=== PATIENT | female | born 1950 | race Caucasian/White ===

== ENCOUNTER → 2016-06-15 | Outpatient (CLI) | payer MEDICARE ==
--- NOTE | 2016-06-15 16:04 | REP ---
Chest x-ray: Two views: History: Cough. Comparison chest x-ray: 06/20/2011. Findings: There is a mild curvature in the thoracic spine unchanged from the prior study. There are multiple clips in the right upper quadrant post cholecystectomy. The lungs are well inflated and remain clear. Heart is not felt to be enlarged. Pulmonary vasculature is not increased. No other significant bony abnormality is seen. Pulmonary vasculature is not increased. Impression: No active disease.
== END ==
LOC: M CLY 15:16
PROVIDERS: ATTEND Family Medicine
DX: R05 Cough (principal)

== ENCOUNTER → 2016-07-04 | Outpatient (REF) | payer BC, MEDICARE ==
[2016-07-04 17:47] LABS: ALBUMIN 3.2 GM/DL (3.2-5.2); ALBUMIN/GLOBULIN RATIO 0.86 (1.00-1.93); ALKALINE PHOSPHATASE 159 U/L (45-117); ALT/SGPT 103 U/L (12-78); ANION GAP 9 MEQ/L (8-16); AST/SGOT 65 U/L (15-37); BILIRUBIN,TOTAL 0.5 MG/DL (0.2-1.0); BLOOD UREA NITROGEN 26 MG/DL (7-18); CALCIUM LEVEL 9.4 MG/DL (8.8-10.2); CARBON DIOXIDE LEVEL 28 MEQ/L (21-32); CHLORIDE LEVEL 101 MEQ/L (98-107); CREATININE FOR GFR 0.97 MG/DL (0.55-1.02); GLOMERULAR FILTRATION RATE > 60.0 (>45); GLUCOSE, FASTING 306 MG/DL (80-110); POTASSIUM SERUM 4.6 MEQ/L (3.5-5.1); SODIUM LEVEL 138 MEQ/L (136-145); TOTAL PROTEIN 6.9 GM/DL (6.4-8.2)
== END ==
LOC: M SFHCCLAY 10:15
PROVIDERS: ATTEND Family Medicine
DX: E11.9 Type 2 diabetes mellitus without complications (principal)

== ENCOUNTER → 2017-01-16 | Outpatient (REF) | payer MEDICARE ==
[2017-01-16 19:14] LABS: ALBUMIN 3.1 GM/DL (3.2-5.2); ALBUMIN/GLOBULIN RATIO 0.79 (1.00-1.93); BILIRUBIN,TOTAL 0.5 MG/DL (0.2-1.0); CALCIUM LEVEL 9.4 MG/DL (8.8-10.2); CREATININE FOR GFR 1.06 MG/DL (0.55-1.02); GLOMERULAR FILTRATION RATE 55.6 (>45); MAGNESIUM LEVEL 2.2 MG/DL (1.8-2.4); POTASSIUM SERUM 4.5 MEQ/L (3.5-5.1)
== END ==
LOC: M SFHCCLAY 09:33
PROVIDERS: ATTEND Family Medicine
DX: B18.2 Chronic viral hepatitis C (principal); M25.512 Pain in left shoulder; E11.9 Type 2 diabetes mellitus without complications; I10 Essential (primary) hypertension

== ENCOUNTER → 2017-06-19 | Outpatient (REF) | payer MEDICARE ==
[2017-06-19 11:33] LABS: ALBUMIN 2.9 GM/DL (3.2-5.2); ALBUMIN/GLOBULIN RATIO 0.78 (1.00-1.93); ALKALINE PHOSPHATASE 188 U/L (45-117); ALT/SGPT 74 U/L (12-78); ANION GAP 7 MEQ/L (8-16); AST/SGOT 44 U/L (7-37); BILIRUBIN,TOTAL 0.3 MG/DL (0.2-1.0); BLOOD UREA NITROGEN 36 MG/DL (7-18); CALCIUM LEVEL 8.7 MG/DL (8.8-10.2); CARBON DIOXIDE LEVEL 27 MEQ/L (21-32); CHLORIDE LEVEL 107 MEQ/L (98-107); CREATININE FOR GFR 1.13 MG/DL (0.55-1.30); GLOMERULAR FILTRATION RATE 51.6 (>45); GLUCOSE, FASTING 325 MG/DL (70-100); POTASSIUM SERUM 4.8 MEQ/L (3.5-5.1); SODIUM LEVEL 141 MEQ/L (136-145); TOTAL PROTEIN 6.6 GM/DL (6.4-8.2)
[2017-06-19 11:36] LABS: ESTIMATED AVERAGE GLUCOSE 183 MG/DL (60-110)
== END ==
LOC: M SFHCCLAY 09:04
DX: E11.9 Type 2 diabetes mellitus without complications (principal)
CPT/HCPCS: 80053

== ENCOUNTER → 2017-07-31 | Outpatient (REF) | payer MEDICARE | LOC: M SFHCCLAY 11:23 | DX: N39.0 Urinary tract infection, site not specified (principal) | CPT/HCPCS: 87186 ==

== ENCOUNTER → 2017-09-16 | Outpatient (REF) | payer MEDICARE ==
[2017-09-16 12:32] LABS: ALBUMIN 2.5 GM/DL (3.2-5.2); ALBUMIN/GLOBULIN RATIO 0.66 (1.00-1.93); ALKALINE PHOSPHATASE 148 U/L (45-117); ALT/SGPT 60 U/L (12-78); ANION GAP 8 MEQ/L (8-16); AST/SGOT 39 U/L (7-37); BILIRUBIN,TOTAL 0.4 MG/DL (0.2-1.0); BLOOD UREA NITROGEN 29 MG/DL (7-18); CALCIUM LEVEL 8.4 MG/DL (8.8-10.2); CARBON DIOXIDE LEVEL 25 MEQ/L (21-32); CHLORIDE LEVEL 106 MEQ/L (98-107); CREATININE FOR GFR 1.47 MG/DL (0.55-1.30); GLUCOSE, FASTING 349 MG/DL (70-100); POTASSIUM SERUM 4.5 MEQ/L (3.5-5.1); SODIUM LEVEL 139 MEQ/L (136-145); TOTAL PROTEIN 6.3 GM/DL (6.4-8.2)
[2017-09-16 13:43] LABS: ESTIMATED AVERAGE GLUCOSE 189 MG/DL (60-110); HEMOGLOBIN A1c 8.2 %
== END ==
LOC: M SFHCCLAY 08:43
DX: E11.9 Type 2 diabetes mellitus without complications (principal)
CPT/HCPCS: 80053

== ENCOUNTER → 2018-03-05 | Outpatient (REF) | payer MEDICARE ==
[2018-03-06 11:57] LABS: ALBUMIN 2.9 GM/DL (3.2-5.2); ALBUMIN/GLOBULIN RATIO 0.74 (1.00-1.93); ALKALINE PHOSPHATASE 128 U/L (45-117); ALT/SGPT 61 U/L (12-78); ANION GAP 11 MEQ/L (8-16); AST/SGOT 42 U/L (7-37); BILIRUBIN,TOTAL 0.4 MG/DL (0.2-1.0); BLOOD UREA NITROGEN 21 MG/DL (7-18); CARBON DIOXIDE LEVEL 25 MEQ/L (21-32); CHLORIDE LEVEL 106 MEQ/L (98-107); CREATININE FOR GFR 1.24 MG/DL (0.55-1.30); GLOMERULAR FILTRATION RATE 46.2 (>45); GLUCOSE, FASTING 152 MG/DL (70-100); POTASSIUM SERUM 4.4 MEQ/L (3.5-5.1); SODIUM LEVEL 142 MEQ/L (136-145); TOTAL PROTEIN 6.8 GM/DL (6.4-8.2)
[2018-03-06 12:45] LABS: ESTIMATED AVERAGE GLUCOSE 146 MG/DL (60-110); HEMOGLOBIN A1c 6.7 %
== END ==
LOC: M SFHCCLAY 14:14
DX: E11.9 Type 2 diabetes mellitus without complications (principal)
CPT/HCPCS: 80053

== ENCOUNTER → 2018-04-11 | Outpatient (REF) | payer MEDICARE | LOC: M SFHCCLAY 11:11 | DX: N39.0 Urinary tract infection, site not specified (principal) | CPT/HCPCS: 87186 ==

== ENCOUNTER → 2018-06-09 | Outpatient (REF) | payer MEDICARE ==
[2018-06-10 12:00] LABS: HEMOGLOBIN A1c 7.5 %
[2018-06-10 12:07] LABS: ALBUMIN 2.9 GM/DL (3.2-5.2); BILIRUBIN,TOTAL 0.4 MG/DL (0.2-1.0); CALCIUM LEVEL 9.2 MG/DL (8.8-10.2); CREATININE FOR GFR 1.21 MG/DL (0.55-1.30); GLOMERULAR FILTRATION RATE 47.5 (>45); POTASSIUM SERUM 4.3 MEQ/L (3.5-5.1); TOTAL PROTEIN 6.7 GM/DL (6.4-8.2)
== END ==
LOC: M SFHCCLAY 14:20
PROVIDERS: ATTEND Family Medicine
DX: E11.9 Type 2 diabetes mellitus without complications (principal)

== ENCOUNTER → 2018-06-25 | Outpatient (CLI) | payer MEDICARE ==
--- NOTE | 2018-06-25 12:25 | REP ---
UNILATERAL LEFT RIBS, PA CHEST, FIVE VIEWS: HISTORY: Chest pain. COMPARISON: 06/15/2016. The lungs are clear. The heart is normal in size. The pulmonary vasculature is normal in appearance. The bony structure is intact. IMPRESSION: No acute disease.
== END ==
LOC: M CLY 11:07
PROVIDERS: ATTEND Family Medicine
DX: R07.89 Other chest pain (principal)

== ENCOUNTER 2018-07-27 00:47 | Emergency (ER) | payer MEDICARE ==
[~2018-07-27] VITALS: Ht 167.6 cm; Wt 72.7 kg
[2018-07-27] MEDS ORDERED: LOSA100T50 (00:58)
[2018-07-27] MEDS ORDERED: ASPI81TA85 PO (00:58)
[2018-07-27] MEDS ORDERED: ATEN100T (00:58)
[2018-07-27] MEDS ORDERED: AMLO10TA5 (00:58)
[2018-07-27] MEDS ORDERED: METF10004 (00:58)
[2018-07-27] MEDS ORDERED: RANI300T (00:58)
[2018-07-27] MEDS ORDERED: OXYC-517 (00:58)
[2018-07-27] MEDS ORDERED: GLIP10TA6 (00:58)
[2018-07-27] MEDS ORDERED: HYDR25TAB (00:58)
[2018-07-27 03:08] LABS: BASO % 0.6 % (0.0-1.0); EOS # 0.2 10^3/uL (0.0-0.50); EOS % 2.1 % (0.0-3.0); HEMATOCRIT 39.8 % (36.0-47.0); HEMOGLOBIN 13.6 g/dl (12.0-15.5); LYMPH # 2.5 10^3/uL (1.5-4.5); LYMPH % 34.6 % (24.0-44.0); MEAN CORPUSCULAR HEMOGLOBIN 31.9 pg (27.0-33.0); MEAN CORPUSCULAR HGB CONC 34.2 g/dl (32.0-36.5); MEAN CORPUSCULAR VOLUME 93.2 fl (80.0-96.0); MONO # 0.5 10^3/uL (0.0-0.8); MONO % 6.3 % (0.0-5.0); NEUTROPHILS % 55.7 % (36.0-66.0); PLATELET COUNT, AUTOMATED 209 10^3/uL (150-450); RED BLOOD COUNT 4.27 10^6/uL (4.00-5.40); WHITE BLOOD COUNT 7.1 10^3/uL (4.0-10.0)
[2018-07-27 03:12] LABS: INR 0.86; PROTHROMBIN TIME 11.8 SECONDS (12.1-14.4)
[2018-07-27 03:13] LABS: PARTIAL THROMBOPLASTIN TIME 24.9 SECONDS (25.4-37.6)
[2018-07-27 03:26] LABS: CALCIUM LEVEL 8.3 MG/DL (8.8-10.2); CREATININE FOR GFR 1.39 MG/DL (0.55-1.30); GLOMERULAR FILTRATION RATE 40.5 (>45); MB/CK RELATIVE INDEX 2.48 (< OR =4); POTASSIUM SERUM 4.1 MEQ/L (3.5-5.1); TROPONIN I 1.68 NG/ML (< 0.10)
[2018-07-27] MEDS ORDERED: HEPARIN DRIP 25,000 UNITS in APPROPRIATE DILUENT 1 EA IV SCH (03:31)
[2018-07-27] MEDS ORDERED: CLOPIDOGREL 300 MG TAB (PLAVIX) PO STA (03:31)
[2018-07-27] MEDS ORDERED: ASPIRIN 325 MG TAB PO ONE (03:45)
[2018-07-27] MEDS ORDERED: HEPARIN SOD (PORCINE) 5000 UNITS/ML VIAL IV ONE (03:45)
[2018-07-27 04:07] VITALS: BP 199/93
[2018-07-27] MEDS ORDERED: NITROGLYCERIN 2% OINT 1 GM *U/D* PKT TOP ONE (04:15)
[2018-07-27 05:00] VITALS: BP 174/79
--- NOTE | 2018-07-27 07:37 | ECGEPIP ---
Stationary ECG Study [facility] - ED Test Date: 2018-07-27 Pat Name: ALEXANDER ALLEN Department: Room: - Gender: F Mix Chemist: gt : 1950 Requested By: JOHANNA TAVERA Order Number: [id number] Reading MD: Chandler Sandoval Measurements Intervals Steen Rate: 73 P: 23 ME: 150 QRS: -15 QRSD: 96 T: 90 QT: 398 QTc: 441 Interpretive Statements SINUS RHYTHM LARRY IN AVR WITH WIDESPREAD ST DEPRESSION, CONSIDER LMCA OCCLUSION NO PRIORS FOR COMPARISON Electronically Signed On 07-27-2018 7:37:08 EDT by Chandler Sandoval
--- NOTE | 2018-07-27 11:20 | REP ---
PORTABLE CHEST: AP portable view of the chest is performed and compared to a prior study of 06/25/2018. There is no acute infiltrate or pulmonary edema. Heart is upper limits of normal in size. Mediastinal silhouette is unchanged. IMPRESSION: No acute infiltrate. Electronically Signed by James Barbosa MD 07/27/2018 05:45 P
== END 2018-07-27 05:06 | disposition short-term general hospital (02) ==
LOC: M ED 00:47
DX: I21.4 Non-ST elevation (NSTEMI) myocardial infarction (principal); E11.9 Type 2 diabetes mellitus without complications; I10 Essential (primary) hypertension; K21.9 Gastro-esophageal reflux disease without esophagitis; Z86.19 Personal history of other infectious and parasitic diseases; Z72.0 Tobacco use; Z79.82 Long term (current) use of aspirin; Z79.84 Long term (current) use of oral hypoglycemic drugs; Z79.899 Other long term (current) drug therapy; Z88.5 Allergy status to narcotic agent; Z88.8 Allergy status to other drugs, medicaments and biological substances; Z88.1 Allergy status to other antibiotic agents; Z88.2 Allergy status to sulfonamides

== ENCOUNTER → 2018-08-18 | Outpatient (CLI) | payer MEDICARE ==
[~2018-08-18] MED LIST: AMLO10TA5; ASPI81TA85 PO; ATEN100T; GLIP10TA6; HYDR25TAB; LOSA100T50; METF10004; OXYC-517; RANI300T
[2018-08-18 18:59] LABS: HEMATOCRIT 32.3 % (36.0-47.0); HEMOGLOBIN 10.6 g/dl (12.0-15.5); MEAN CORPUSCULAR HGB CONC 32.8 g/dl (32.0-36.5); MEAN CORPUSCULAR VOLUME 91.5 fl (80.0-96.0); PLATELET COUNT, AUTOMATED 282 10^3/uL (150-450); RED BLOOD COUNT 3.53 10^6/uL (4.00-5.40); WHITE BLOOD COUNT 9.9 10^3/uL (4.0-10.0)
[2018-08-18 19:04] LABS: CALCIUM LEVEL 8.5 MG/DL (8.8-10.2); CREATININE FOR GFR 1.2 MG/DL (0.55-1.30); GLOMERULAR FILTRATION RATE 47.8 (>45)
== END ==
LOC: M LAB 17:00
PROVIDERS: ATTEND Nurse Practitioner Family
DX: E78.5 Hyperlipidemia, unspecified (principal); I10 Essential (primary) hypertension; I25.810 Atherosclerosis of coronary artery bypass graft(s) without angina pectoris; R06.02 Shortness of breath

== ENCOUNTER → 2018-08-19 | Outpatient (CLI) | payer MEDICARE ==
--- NOTE | 2018-08-19 12:00 | REP ---
CT of the chest without IV contrast for chest pain and shortness of breath: There are no comparison chest CTs. There is a comparison portable chest dated 07/27/2018. There are small bilateral pleural effusions. There is atelectasis in the lower lobes adjacent to the The lung peterson are otherwise clear. Cardiac size is mildly enlarged. There is no mediastinal or axillary lymph node enlargement. In the absence of IV contrast the study is insensitive for hilar lymph node enlargement. The thoracic aorta is unremarkable. There is calcified atheroma in the coronary arteries. The cardiac size is enlarged. There is a small pericardial effusion versus pericardial thickening measuring up to 6.3 mm anteriorly. The visualized unenhanced upper abdominal contents are unremarkable. There are thyroid nodules bilaterally. Thyroid ultrasound follow-up might be considered. Impression: Small bilateral pleural effusions with accompanying bibasilar atelectasis. Cardiomegaly. Small pericardial effusion versus pericardial thickening measuring up to 6 mm. Coronary artery calcified vascular atheroma. Electronically Signed by James Reardon MD 08/19/2018 11:52 A
== END ==
LOC: M RAD 11:13
PROVIDERS: ATTEND Nurse Practitioner Family
DX: J90 Pleural effusion, not elsewhere classified (principal); I51.7 Cardiomegaly; R06.02 Shortness of breath; R07.89 Other chest pain

== ENCOUNTER → 2018-09-15 | Outpatient (REF) | payer MEDICARE ==
[2018-09-15 17:14] LABS: HEMATOCRIT 30.4 % (36.0-47.0); HEMOGLOBIN 9.5 g/dl (12.0-15.5); MEAN CORPUSCULAR HEMOGLOBIN 29.4 pg (27.0-33.0); MEAN CORPUSCULAR HGB CONC 31.3 g/dl (32.0-36.5); MEAN CORPUSCULAR VOLUME 94.1 fl (80.0-96.0); PLATELET COUNT, AUTOMATED 218 10^3/uL (150-450); RED BLOOD COUNT 3.23 10^6/uL (4.00-5.40); WHITE BLOOD COUNT 7.7 10^3/uL (4.0-10.0)
[2018-09-15 17:31] LABS: ALBUMIN 2.8 GM/DL (3.2-5.2); BILIRUBIN,TOTAL 0.2 MG/DL (0.2-1.0); CALCIUM LEVEL 8.2 MG/DL (8.8-10.2); CREATININE FOR GFR 1.27 MG/DL (0.55-1.30); GLOMERULAR FILTRATION RATE 44.8 (>45); POTASSIUM SERUM 4.7 MEQ/L (3.5-5.1); TOTAL PROTEIN 6.4 GM/DL (6.4-8.2)
== END ==
LOC: M LAB REF 16:27
PROVIDERS: ATTEND Internal Medicine Infectious Disease
DX: B96.4 Proteus (mirabilis) (morganii) as the cause of diseases classified elsewhere (principal); T81.40XA Infection following a procedure, unspecified, initial encounter; X58.XXXA Exposure to other specified factors, initial encounter

== ENCOUNTER → 2018-09-22 | Outpatient (REF) | payer MEDICARE ==
[2018-09-22 19:29] LABS: BASO % 0.6 % (0.0-1.0); EOS # 0.2 10^3/uL (0.0-0.50); EOS % 2.4 % (0.0-3.0); HEMATOCRIT 29.6 % (36.0-47.0); HEMOGLOBIN 9.4 g/dl (12.0-15.5); LYMPH # 1.2 10^3/uL (1.5-4.5); LYMPH % 18.8 % (24.0-44.0); MEAN CORPUSCULAR HEMOGLOBIN 30.3 pg (27.0-33.0); MEAN CORPUSCULAR HGB CONC 31.8 g/dl (32.0-36.5); MEAN CORPUSCULAR VOLUME 95.5 fl (80.0-96.0); MONO # 0.3 10^3/uL (0.0-0.8); MONO % 4.1 % (0.0-5.0); NEUTROPHILS # 4.6 10^3/uL (1.8-7.7); NEUTROPHILS % 73.5 % (36.0-66.0); PLATELET COUNT, AUTOMATED 210 10^3/uL (150-450); WHITE BLOOD COUNT 6.3 10^3/uL (4.0-10.0)
[2018-09-22 19:56] LABS: ERYTHROCYTE SEDIMENTATION RATE 70 mm/hr (0-30)
[2018-09-22 20:23] LABS: ALBUMIN 2.8 GM/DL (3.2-5.2); ALT/SGPT 47 U/L (12-78); BILIRUBIN,TOTAL 0.1 MG/DL (0.2-1.0); BLOOD UREA NITROGEN 40 MG/DL (7-18); C REACTIVE PROTEIN QUANTITATIV < 0.30 MG/DL (0.00-0.30); CALCIUM LEVEL 8.9 MG/DL (8.8-10.2); CARBON DIOXIDE LEVEL 23 MEQ/L (21-32); CHLORIDE LEVEL 105 MEQ/L (98-107); CREATININE FOR GFR 1.53 MG/DL (0.55-1.30); GLOMERULAR FILTRATION RATE 36.2 (>45); GLUCOSE, FASTING 235 MG/DL (70-100); POTASSIUM SERUM 4.1 MEQ/L (3.5-5.1); SODIUM LEVEL 140 MEQ/L (136-145); TOTAL PROTEIN 6.4 GM/DL (6.4-8.2)
== END ==
LOC: M LAB REF 16:35
PROVIDERS: ATTEND Internal Medicine Infectious Disease
DX: T81.49XA Infection following a procedure, other surgical site, initial encounter (principal)

== ENCOUNTER → 2018-10-14 | Outpatient (REF) | payer MEDICARE ==
[2018-10-14 18:25] LABS: BASO % 0.6 % (0.0-1.0); EOS # 0.1 10^3/uL (0.0-0.50); EOS % 3.5 % (0.0-3.0); HEMATOCRIT 29.7 % (36.0-47.0); HEMOGLOBIN 9.4 g/dl (12.0-15.5); LYMPH # 0.9 10^3/uL (1.5-4.5); LYMPH % 25.6 % (24.0-44.0); MEAN CORPUSCULAR HEMOGLOBIN 29.7 pg (27.0-33.0); MEAN CORPUSCULAR HGB CONC 31.6 g/dl (32.0-36.5); MONO # 0.4 10^3/uL (0.0-0.8); MONO % 11.2 % (0.0-5.0); NEUTROPHILS % 58.8 % (36.0-66.0); PLATELET COUNT, AUTOMATED 188 10^3/uL (150-450); RED BLOOD COUNT 3.16 10^6/uL (4.00-5.40); WHITE BLOOD COUNT 3.5 10^3/uL (4.0-10.0)
[2018-10-14 18:45] LABS: ALBUMIN 2.5 GM/DL (3.2-5.2); BILIRUBIN,TOTAL 0.2 MG/DL (0.2-1.0); C REACTIVE PROTEIN QUANTITATIV 0.3 MG/DL (0.00-0.30); CALCIUM LEVEL 8.1 MG/DL (8.8-10.2); CREATININE FOR GFR 1.4 MG/DL (0.55-1.30); GLOMERULAR FILTRATION RATE 40.1 (>45); PERCENT SATURATION 19.1 % (13.2-45.0); POTASSIUM SERUM 4.7 MEQ/L (3.5-5.1); TOTAL PROTEIN 6.5 GM/DL (6.4-8.2)
[2018-10-14 19:07] LABS: ERYTHROCYTE SEDIMENTATION RATE 67 mm/hr (0-30)
== END ==
LOC: M LAB REF 17:06
PROVIDERS: ATTEND Internal Medicine Infectious Disease
DX: B18.2 Chronic viral hepatitis C (principal); D50.8 Other iron deficiency anemias; T81.49XA Infection following a procedure, other surgical site, initial encounter

== ENCOUNTER → 2018-10-22 | Outpatient (REF) | payer MEDICARE ==
[2018-10-22 13:22] LABS: CALCIUM LEVEL 8.3 MG/DL (8.8-10.2); CREATININE FOR GFR 1.74 MG/DL (0.55-1.30); GLOMERULAR FILTRATION RATE 31.2 (>45); POTASSIUM SERUM 3.9 MEQ/L (3.5-5.1)
== END ==
LOC: M SFHCCLAY 09:16
PROVIDERS: ATTEND Family Medicine
DX: N18.3 Chronic kidney disease, stage 3 (moderate) (principal)

== ENCOUNTER → 2018-10-29 | Outpatient (CLI) | payer MEDICARE ==
--- NOTE | 2018-10-29 08:46 | REP ---
Renal ultrasound for acute on chronic renal disease: There are no comparisons. The right kidney measures 11.6 x 5.6 x 4.7 cm. The left kidney measures 12.6 x 5.1 x 5.6 cm. The kidneys are normal size. There are no renal calculi. There is no hydronephrosis. There are no solid or cystic renal masses. The renal vessels are mildly echogenic, compatible with vascular atheroma. The renal sinus fat is mildly increased, compatible with chronic renal disease. During the examination is noted that the hepatic parenchyma is hyperechoic compatible with hepato steatosis. The liver is enlarged measuring 21.3 cm craniocaudad length in the midclavicular line. Bladder: The bladder is nondistended and cannot be evaluated at this time. Impression: There is no hydronephrosis. There are no solid or cystic renal masses. No renal calculi are identified. There are findings compatible with chronic renal disease as described. Electronically Signed by James Reardon MD 10/29/2018 08:38 A
== END ==
LOC: M RAD 07:44
PROVIDERS: ATTEND Family Medicine
DX: N18.9 Chronic kidney disease, unspecified (principal); N17.9 Acute kidney failure, unspecified

== ENCOUNTER → 2018-11-19 | Outpatient (REF) | payer MEDICARE ==
[2018-11-19 09:53] LABS: CALCIUM LEVEL 8.5 MG/DL (8.8-10.2); CREATININE FOR GFR 1.54 MG/DL (0.55-1.30); GLOMERULAR FILTRATION RATE 35.9 (>45); POTASSIUM SERUM 4.6 MEQ/L (3.5-5.1)
[2018-11-19 11:05] LABS: HEMOGLOBIN A1c 7.5 %
== END ==
LOC: M SFHCPLAZ 08:08
PROVIDERS: ATTEND Family Medicine
DX: E11.22 Type 2 diabetes mellitus with diabetic chronic kidney disease (principal); N18.3 Chronic kidney disease, stage 3 (moderate)

== ENCOUNTER 2018-11-28 09:18 | Outpatient (RCR) | payer MEDICARE ==
--- NOTE | 2018-11-28 10:21 | CARECAPL ---
Assessment Account #s: Initial Assessment General Diagnoses: CABG Date of event: Aug 01, 2018 Physician: Omar Ramos MD Allergies: Coded Allergies: MS - Butorphanol (Unverified Allergy, Unknown, 08/06/12) MS - Codeine (Unverified Allergy, Unknown, 08/06/12) MS - Doxazosin (Unverified Allergy, Unknown, VERTIGO, 08/06/12) MS - Erythromycin (Unverified Allergy, Unknown, 08/06/12) MS - Sulfa Drugs (Unverified Allergy, Unknown, 08/06/12) MS - Sulfa Drugs Cross Reactors (Unverified Allergy, Unknown, 08/06/12) Date Entered Program: Nov 28, 2018 Risk strat for cardiac event: High Exercise Assessment: Initial Assessment Exercise Prescription Plan educate and increase endurance, flexibility and strength through monitored exercise Modalities initiated: Nustep (will add level 1 for 6 minutes), Arm Aerometer (will add resistance 1.0 for 4 minutes), Dumbells (will add 1 lb 2 sets 6-8 reps), Recumbent Bike (will add resistance 1 for 5 minutes) Frequency: 3 Duration (Minutes) 30-60 minutes total exercise a day. 15-20 work intervals in minutes. prn rest intervals in minutes. Functional Capacity Goal Sustained Metabolic Equivalent of a task (MET) goal of 2.5-3.0 for 15-20 minutes. Intensity: 3-Moderate Progression (METS) Increase by: 0.5 METS every: 3-5 sessions Angina with ex: No Target Heart Rate rest + 35-40 per beta john therapy. Resistance Training: Yes Weight (pounds): 1 Reps: 6-8 Hypertension controlled with: Medication Resting 157/70 Meds carvedilol and amlodipine Medications Scheduled Aspirin (Aspir 81), 1 TAB PO DAILY, (Reported) Miscellaneous Medications Amlodipine Besylate (Amlodipine Besylate), (Reported) Atenolol (Atenolol), (Reported) Glipizide (Glipizide), (Reported) Hydrochlorothiazide (Hydrochlorothiazide), (Reported) Losartan Potassium (Losartan Potassium), (Reported) Metformin HCl (Metformin HCl), (Reported) Oxycodone HCl (Oxycodone HCl), (Reported) Ranitidine HCl (Ranitidine HCl), (Reported) Target Goals Individual exercise Rx (1) BP 140/90 or 130/80 if DM or CKD (1) Aerobic active 30+min 5 days per week (1) Nutrition Date: Nov 28, 2018 Assessment: Initial Assessment Lipid- med/supplement atorvastatin Diabetes medication Januvia and Glipizide Monitor Blood Sugar at home: Yes Frequency daily Weight Management Weight (lbs): 161.6 Height (inches): 66 Waist Circumference (Inches): 46 BMI: 25.98 Weight goal: 150 Special Diet: mediteranean diet Vitamin/Supplements: Other (iron) Alcohol: none Score: 49 Intervention Medical Recruiter Consult: No Nurse/patient discussion: No Dietary Goals eat healthier portion and better choice of low fat low cholesterol. Diet Class: No Referral to Diabetes education: No Referral to lipid clinic: No Referral to weight mangement p: No Target goal LDL-C<100 if triglycerides are >200 Non-HDL-C should be <130 (1) LDL-C<70 for high risk patients (4) HbA1c<7% (1) BMI<25 Waist cir<40in M/<35in F (1) Education Date: Nov 28, 2018 Assessment: Initial Assessment Learning Barriers: ready Knowledge Test Score: 10 Family Support: Yes Tobacco use: No Quit: <6 months (quit july 26, 2018) Intervention Referral to smoking cessation: No Individual education and couns: No Tobacco Adjunct: No Education class schedule given: No Attended education classes: No Target Goals Complete cessation of tobacco use (1). Psychosocial Date: Nov 28, 2018 Assessment: Initial Assessment Psych Test (Initial/Discharge) Tool Used: CESD Score: 22 (Primary Care Provider Dr. Carmina Wynne notified of score.) Intervention Physician Consult: No Physician Referral: No Psychotropic medication none Target Goal Assess presence or absence of depression using a valid screening tool (1). Maximize coping skills (2). Positive support system (2). Patient/Program Goal Preventative Medication: Yes Aspirin, Yes Beta blockade, Yes Statin/OTR lipid Lowering, Yes Other (calcium channel john.) Fall Risk Assess: Yes (yes fall risk) Provider Assessment Provider Assessment: Proceed with rehab Sarita Stewart RN Nov 28, 2018 10:21
[2018-11-28] MEDS ORDERED: AMLO5TAB6 PO (10:31)
[2018-11-28] MEDS ORDERED: CULT10CA4 PO (10:31)
[2018-11-28] MEDS ORDERED: ATOR40TA75 PO (10:31)
[2018-11-28] MEDS ORDERED: ASPI-525 PO (10:31)
[2018-11-28] MEDS ORDERED: CARV25TA PO (10:31)
[2018-11-28] MEDS ORDERED: GLIP5TAB20 PO (10:31)
[2018-11-28] MEDS ORDERED: SITA50TAB PO (10:31)
[2018-11-28] MEDS ORDERED: POTA1TAB14 PO (10:31)
[2018-11-28] MEDS ORDERED: CVS1CHW13 PO (10:31)
[2018-11-28] MEDS ORDERED: CLONI1TA PO (10:31)
[2018-11-28] MEDS ORDERED: TORS20TA2 PO (10:31)
[2018-11-28] MEDS ORDERED: ACET-683 PO (10:31)
[2018-11-28] MEDS ORDERED: COLA100C5 PO (10:31)
[2018-11-28] MEDS ORDERED: NIFE1TAB62 PO (10:31)
== END 2018-12-03 ==
LOC: M CR 09:18
PROVIDERS: ATTEND Internal Medicine Cardiovascular Disease
DX: Z95.1 Presence of aortocoronary bypass graft (principal)

== ENCOUNTER → 2018-12-03 | Outpatient (REF) | payer MEDICARE ==
[~2018-12-03] MED LIST changes: +ACET-683 PO; +AMLO5TAB6 PO; +ASPI-525 PO; +ATOR40TA75 PO; +CARV25TA PO; +CLONI1TA PO; +COLA100C5 PO; +CULT10CA4 PO; +CVS1CHW13 PO; +GLIP5TAB20 PO; +NIFE1TAB62 PO; +POTA1TAB14 PO; +SITA50TAB PO; +TORS20TA2 PO
[2018-12-03 14:33] LABS: PERCENT SATURATION 25.9 % (13.2-45.0)
[2018-12-03 14:48] LABS: FOLATE 12.8 NG/ML
== END ==
LOC: M LAB REF 13:15
PROVIDERS: ATTEND Internal Medicine Nephrology
DX: D64.9 Anemia, unspecified (principal)

== ENCOUNTER → 2018-12-29 | Outpatient (CLI) | payer MEDICARE ==
[2018-12-29 10:58] LABS: HEMATOCRIT 31.1 % (36.0-47.0); HEMOGLOBIN 10.5 g/dl (12.0-15.5); MEAN CORPUSCULAR HEMOGLOBIN 31.8 pg (27.0-33.0); MEAN CORPUSCULAR HGB CONC 33.8 g/dl (32.0-36.5); MEAN CORPUSCULAR VOLUME 94.2 fl (80.0-96.0); PLATELET COUNT, AUTOMATED 150 10^3/uL (150-450); WHITE BLOOD COUNT 5.6 10^3/uL (4.0-10.0)
[2018-12-29 11:25] LABS: BLOOD UREA NITROGEN 28 MG/DL (7-18); CARBON DIOXIDE LEVEL 26 MEQ/L (21-32); CHLORIDE LEVEL 109 MEQ/L (98-107); CREATININE FOR GFR 1.53 MG/DL (0.55-1.30); GLOMERULAR FILTRATION RATE 36.2 (>45); GLUCOSE, FASTING 245 MG/DL (70-100); POTASSIUM SERUM 4.6 MEQ/L (3.5-5.1); SODIUM LEVEL 142 MEQ/L (136-145); TROPONIN I < 0.02 NG/ML (< 0.10)
== END ==
LOC: M SMT 09:45
PROVIDERS: ATTEND Internal Medicine Cardiovascular Disease
DX: R07.9 Chest pain, unspecified (principal); I10 Essential (primary) hypertension; R06.2 Wheezing

== ENCOUNTER 2019-01-02 11:16 | Outpatient (RCR) | payer MEDICARE ==
--- NOTE | 2018-12-24 15:25 | CARECAPL ---
Assessment Account #s: Re-Assessment I General Diagnoses: CABG Date of event: Aug 01, 2018 Physician: Omar Ramos MD Allergies: Coded Allergies: MS - Butorphanol (Unverified Allergy, Unknown, 08/06/12) MS - Codeine (Unverified Allergy, Unknown, 08/06/12) MS - Doxazosin (Unverified Allergy, Unknown, VERTIGO, 08/06/12) MS - Erythromycin (Unverified Allergy, Unknown, 08/06/12) MS - Sulfa Drugs (Unverified Allergy, Unknown, 08/06/12) MS - Sulfa Drugs Cross Reactors (Unverified Allergy, Unknown, 08/06/12) Date Entered Program: Dec 01, 2018 Risk strat for cardiac event: High Exercise Date: Dec 24, 2018 Assessment: Re-Assessment I Exercise Prescription Modalities initiated: Nustep (Resistance 5 for 12 minutes mets 4.0 RPE 3), Arm Aerometer (Resistance 2.5 for 10 minutes mets 2.0 RPE 3), Dumbells (3lbs 2 sets 10 reps RPE 3.5), Recumbent Bike (Resistance 1 for 6 minutes mets 2.6 RPE 4) Frequency: 2-3 Duration (Minutes) 30-60 minutes total exercise a day. 15-20 work intervals in minutes. prn rest intervals in minutes. Functional Capacity Goal Sustained Metabolic Equivalent of a task (MET) goal of 3.5-4.0 for 15-20 minutes. Intensity: 3-Moderate Progression (METS) Increase by: 0.5 METS every: 3-5 sessions Angina with ex: No Target Heart Rate rest + 35-40 per beta john therapy Resistance Training: Yes Weight (pounds): 3 Reps: 8-12 Hypertension: No Hypertension controlled with: Medication (carvedilol and norvasc) Resting 128/70 Peak Exercise BP 150/80 Meds carvedilol and norvasc Medications Scheduled Amlodipine Besylate (Amlodipine Besylate), 5 MG PO DAILY, (Reported) Aspirin (Aspirin EC), 325 MG PO DAILY, (Reported) Atorvastatin Calcium (Atorvastatin Calcium), 40 MG PO QHS, (Reported) Carvedilol (Carvedilol), 25 MG PO BID, (Reported) Clonidine Hcl (Clonidine HCl), 0.1 MG PO BID, (Reported) Docusate Sodium (Colace), 100 MG PO QPM, (Reported) Glipizide (Glipizide ER), 5 MG PO DAILY, (Reported) Iron Ag,Ps/C/Fa6/B12/Zn/SA/Sto (Niferex Tablet), 1 TAB PO DAILY, (Reported) Potassium Chloride (Potassium Chloride), 20 MEQ PO DAILY, (Reported) Sitagliptin (Januvia), 50 MG PO DAILY, (Reported) Torsemide (Torsemide), 20 MG PO DAILY, (Reported) Scheduled PRN Acetaminophen (Acetaminophen), 1,000 MG PO Q6H PRN for PAIN, (Reported) Inulin (Fiber Gummies), 1 TAB PO DAILYPRN PRN for BOWEL CARE/CONSTIPATION, (Reported) Lactobacillus Rhamnosus GG (Culturelle), 1 CAP PO DAILYPRN PRN for while taking by MD, (Reported) Current BP 128/70 Med Change: No Intervention Education: S/S to report (patient able to repeat s/s of chest pain, nausea/vomiting, excessive sweating and increase BP to MD), RPE Scale (demonstrates independence), Equipment orientation (minimal verbal cueing), warm up/cool down (demonstrates independence), Understand BP (Patient understands importance of BP <140/80) Target Goals Individual exercise Rx (1) BP 140/90 or 130/80 if DM or CKD (1) Aerobic active 30+min 5 days per week (1) Nutrition Date: Dec 24, 2018 Assessment: Re-Assessment I Med Change: No Medication Change: No Random Blood Sugar: 130 Blood sugar in range: Yes Current Weight (pounds): 163 Education S&S hypo/hyper glycemia (patient able to repeat s/s hypo/hyperglycemia such as headache, malasie and confusion), Eating Healthy (patient able to verbalized importance of eating more vegatables, and fish) Target goal LDL-C<100 if triglycerides are >200 Non-HDL-C should be <130 (1) LDL-C<70 for high risk patients (4) HbA1c<7% (1) BMI<25 Waist cir<40in M/<35in F (1) Education Date: Dec 24, 2018 Assessment: Re-Assessment I Intervention Education: Risk factors (patient able to repeat 3 risk factors of heart disease smoking, overweight and high fat diet) Target Goals Complete cessation of tobacco use (1). Psychosocial Date: Dec 24, 2018 Assessment: Re-Assessment I Med Change: No Stress Management Class: Yes Uses Stress Management Skills: Yes Education Education: Coping Techniques (patient stated 2 mechanisms for coping such as taking time for herself and taking to a friend.), S/S depression (patient described 2 symptoms of depression withdrawal and tearfulness), Relaxation Techniques (patient describes reading a book or listen to music for relaxation) Education Goals Met: Yes Target Goal Assess presence or absence of depression using a valid screening tool (1). Maximize coping skills (2). Positive support system (2). Patient/Program Goal Preventative Medication: Yes Aspirin, Yes Beta blockade, Yes Statin/OTR lipid Lowering, Yes Other (calcium channel john) Fall Risk Assess: Yes (yes fall risk) Provider Assessment Session Number: 10 Provider Assessment: Proceed with rehab (progressing) Sarita Stewart RN Dec 24, 2018 15:25
== END 2019-01-03 ==
LOC: M CR 11:16
PROVIDERS: ATTEND Internal Medicine Cardiovascular Disease
DX: Z95.1 Presence of aortocoronary bypass graft (principal)

== ENCOUNTER → 2019-02-02 | Outpatient (RCR) | payer MEDICARE ==
--- NOTE | 2019-01-19 13:54 | CARECAPL ---
Assessment Account #s: Re-Assessment II General Diagnoses: CABG Date of event: Aug 01, 2018 Physician: Westley Zimmer Allergies: Coded Allergies: MS - Butorphanol (Unverified Allergy, Unknown, 08/06/12) MS - Codeine (Unverified Allergy, Unknown, 08/06/12) MS - Doxazosin (Unverified Allergy, Unknown, VERTIGO, 08/06/12) MS - Erythromycin (Unverified Allergy, Unknown, 08/06/12) MS - Sulfa Drugs (Unverified Allergy, Unknown, 08/06/12) MS - Sulfa Drugs Cross Reactors (Unverified Allergy, Unknown, 08/06/12) Date Entered Program: Dec 01, 2018 Risk strat for cardiac event: High Exercise Date: Jan 19, 2019 Assessment: Re-Assessment II Stages of change: action Exercise Prescription Modalities initiated: Nustep (L5 mts 2.1 rpe 3 15 minutes), Arm Aerometer (4.0 mts 2.3 rpe 3 10 minutes), Dumbells, Recumbent Bike (R1 mts 4.5 rpe 4 7 minutes) Frequency: 2-3 Duration (Minutes) 30 - 60 minutes total exercise a day. 15 - 20 work intervals in minutes. PRN rest intervals in minutes. Functional Capacity Goal Sustained Metabolic Equivalent of a task (MET) goal of 3.5-4.0 for 15-20 minutes. Intensity: 4-Quite a bit Progression (METS) Increase by: METS every: sessions Resistance Training: Yes Weight (pounds): 4 Reps: 6-8 Hypertension: Yes Hypertension controlled with: Medication Resting 140/80 Peak Exercise BP 162/90 Meds see below Medications Scheduled Amlodipine Besylate (Amlodipine Besylate), 5 MG PO DAILY, (Reported) Aspirin (Aspirin EC), 325 MG PO DAILY, (Reported) Atorvastatin Calcium (Atorvastatin Calcium), 40 MG PO QHS, (Reported) Carvedilol (Carvedilol), 25 MG PO BID, (Reported) Clonidine Hcl (Clonidine HCl), 0.1 MG PO BID, (Reported) Docusate Sodium (Colace), 100 MG PO QPM, (Reported) Glipizide (Glipizide ER), 5 MG PO DAILY, (Reported) Iron Ag,Ps/C/Fa6/B12/Zn/SA/Sto (Niferex Tablet), 1 TAB PO DAILY, (Reported) Potassium Chloride (Potassium Chloride), 20 MEQ PO DAILY, (Reported) Sitagliptin (Januvia), 50 MG PO DAILY, (Reported) Torsemide (Torsemide), 20 MG PO DAILY, (Reported) Scheduled PRN Acetaminophen (Acetaminophen), 1,000 MG PO Q6H PRN for PAIN, (Reported) Inulin (Fiber Gummies), 1 TAB PO DAILYPRN PRN for BOWEL CARE/CONSTIPATION, (Reported) Lactobacillus Rhamnosus GG (Culturelle), 1 CAP PO DAILYPRN PRN for while taking by MD, (Reported) Current BP 118/64 after exercise Med Change: No Intervention Home exercise: Type (walking, lifting weights, join [employer]), Frequency (3-5 times per week), Duration (30-60 minutes to include warm up and cool down) Resistance Training: Yes Education Goals Met: No (see prior ITP for education) Target Goals Individual exercise Rx (1) BP 140/90 or 130/80 if DM or CKD (1) Aerobic active 30+min 5 days per week (1) Nutrition Date: Jan 19, 2019 Assessment: Re-Assessment II Stages of change: Preperation Diabetes Diabetes: Yes Monitor Blood Sugar at home: Yes Random Blood Sugar: 179 Blood sugar in range: No Current Weight (pounds): 164 Weight Goal 150 Intervention Diet Class: Yes (will see during program) Education Goals Met: No (progressing toward goals. see prior ITP for education covered) Target goal LDL-C<100 if triglycerides are >200 Non-HDL-C should be <130 (1) LDL-C<70 for high risk patients (4) HbA1c<7% (1) BMI<25 Waist cir<40in M/<35in F (1) Education Date: Jan 19, 2019 Intervention Attended education classes: Yes (see prior ITP for education covered) Education Goals Met: No (progressing toward goals) Target Goals Complete cessation of tobacco use (1). Psychosocial Date: Jan 19, 2019 Assessment: Re-Assessment II Stress Management Class: Yes Uses Stress Management Skills: Yes Education Goals Met: No (see prior ITP for education covered regarding stress) Target Goal Assess presence or absence of depression using a valid screening tool (1). Maximize coping skills (2). Positive support system (2). Provider Assessment Session Number: 19 Provider Assessment: No changes (good attendance and positive attitude about exercise and healthy lifestyle) Rosio Moreau RN Jan 19, 2019 13:54
== END ==
LOC: M CR 01-07 13:41
PROVIDERS: ATTEND Internal Medicine Cardiovascular Disease
DX: Z95.1 Presence of aortocoronary bypass graft (principal)

== ENCOUNTER → 2019-02-20 | Outpatient (REF) | payer MEDICARE ==
[2019-02-20 12:41] LABS: HEMATOCRIT 33.3 % (36.0-47.0); HEMOGLOBIN 11.1 g/dl (12.0-15.5); MEAN CORPUSCULAR HEMOGLOBIN 31.9 pg (27.0-33.0); MEAN CORPUSCULAR HGB CONC 33.3 g/dl (32.0-36.5); MEAN CORPUSCULAR VOLUME 95.7 fl (80.0-96.0); PLATELET COUNT, AUTOMATED 161 10^3/uL (150-450); RED BLOOD COUNT 3.48 10^6/uL (4.00-5.40); WHITE BLOOD COUNT 6.6 10^3/uL (4.0-10.0)
[2019-02-20 12:59] LABS: HEMOGLOBIN A1c 6.7 %
[2019-02-20 13:01] LABS: CALCIUM LEVEL 8.2 MG/DL (8.8-10.2); CREATININE FOR GFR 1.79 MG/DL (0.55-1.30); GLOMERULAR FILTRATION RATE 30.2 (>45); POTASSIUM SERUM 4.8 MEQ/L (3.5-5.1)
[2019-02-25 00:06] LABS: HEPATITIS A IgG TOTAL Negative (Negative); HEPATITIS B CORE ANTIBODY IGG Negative (Negative); HEPATITIS C VIRUS GENOTYPE 1b (.)
== END ==
LOC: M SFHCPLAZ 09:24
PROVIDERS: ATTEND Family Medicine
DX: D50.8 Other iron deficiency anemias (principal); B18.2 Chronic viral hepatitis C; E11.22 Type 2 diabetes mellitus with diabetic chronic kidney disease; N18.3 Chronic kidney disease, stage 3 (moderate)

== ENCOUNTER 2019-02-25 09:36 | Outpatient (RCR) | payer MEDICARE ==
--- NOTE | 2019-02-16 13:41 | CARECAPL ---
Assessment Account #s: Re-Assessment II (3) General Diagnoses: CABG Date of event: Aug 01, 2018 Physician: Omar Ramos MD Allergies: Coded Allergies: MS - Butorphanol (Unverified Allergy, Unknown, 08/06/12) MS - Codeine (Unverified Allergy, Unknown, 08/06/12) MS - Doxazosin (Unverified Allergy, Unknown, VERTIGO, 08/06/12) MS - Erythromycin (Unverified Allergy, Unknown, 08/06/12) MS - Sulfa Drugs (Unverified Allergy, Unknown, 08/06/12) MS - Sulfa Drugs Cross Reactors (Unverified Allergy, Unknown, 08/06/12) Date Entered Program: Dec 01, 2018 Risk strat for cardiac event: High Exercise Date: Feb 16, 2019 Assessment: Re-Assessment II (3) Stages of change: action Exercise Prescription Plan Educate on cardiovascular disease and increased endurance, strength and flexibility through monitored exercise program Modalities initiated: Nustep (resistance of 8 for 15 minutes mets 3.8 RPE 3), Arm Aerometer (resistance of 5.5 for 10 minutes mets 2.7 RPE 3), Dumbells (4 pound weight 1 set for 15 reps RPE 3), Recumbent Bike (resistance of 1 for 10 minutes mets 2.6 RPE 4) Frequency: 3 Duration (Minutes) 30 - 60 minutes total exercise a day. 15 - 20 work intervals in minutes. PRN rest intervals in minutes. Functional Capacity Goal Sustained Metabolic Equivalent of a task (MET) goal of 3.5-4.0 for 15-20 minutes. Intensity: 3-Moderate Progression (METS) Increase by: 0.5 METS every: 3-5 sessions Angina with ex: No Target Heart Rate rest +35-40 per beta john therapy Resistance Training: Yes Weight (pounds): 4 Reps: 12-15 Medications Scheduled Amlodipine Besylate (Amlodipine Besylate), 5 MG PO DAILY, (Reported) Aspirin (Aspirin EC), 325 MG PO DAILY, (Reported) Atorvastatin Calcium (Atorvastatin Calcium), 40 MG PO QHS, (Reported) Carvedilol (Carvedilol), 25 MG PO BID, (Reported) Clonidine Hcl (Clonidine HCl), 0.1 MG PO BID, (Reported) Docusate Sodium (Colace), 100 MG PO QPM, (Reported) Glipizide (Glipizide ER), 5 MG PO DAILY, (Reported) Iron Ag,Ps/C/Fa6/B12/Zn/SA/Sto (Niferex Tablet), 1 TAB PO DAILY, (Reported) Potassium Chloride (Potassium Chloride), 20 MEQ PO DAILY, (Reported) Sitagliptin (Januvia), 50 MG PO DAILY, (Reported) Torsemide (Torsemide), 20 MG PO DAILY, (Reported) Scheduled PRN Acetaminophen (Acetaminophen), 1,000 MG PO Q6H PRN for PAIN, (Reported) Inulin (Fiber Gummies), 1 TAB PO DAILYPRN PRN for BOWEL CARE/CONSTIPATION, (Reported) Lactobacillus Rhamnosus GG (Culturelle), 1 CAP PO DAILYPRN PRN for while taking by MD, (Reported) Current BP 158/86 Med Change: No Education Goals Met: No (we'll continue to educate throughout program. See documentation of education on previous ITP) Target Goals Individual exercise Rx (1) BP 140/90 or 130/80 if DM or CKD (1) Aerobic active 30+min 5 days per week (1) Nutrition Date: Feb 16, 2019 Assessment: Re-Assessment II (3) Stages of change: action Med Change: No Diabetes Diabetes: Yes HbA1c (%): 7.5 (on 11/19/18) Medication Change: No Random Blood Sugar: 181 Blood sugar in range: Yes Current Weight (pounds): 167 Intervention Liner Checker Consult: No Nurse/patient discussion: Yes Dietary Goals healthier choices Diet Class: Yes Education Goals Met: No (we'll continue to educate throughout program. See education documented on previous ITP) Target goal LDL-C<100 if triglycerides are >200 Non-HDL-C should be <130 (1) LDL-C<70 for high risk patients (4) HbA1c<7% (1) BMI<25 Waist cir<40in M/<35in F (1) Education Date: Feb 16, 2019 Assessment: Re-Assessment II (3) Education Goals Met: No (we'll continue to educate throughout program. See education documented on previous ITP's) Target Goals Complete cessation of tobacco use (1). Psychosocial Date: Feb 16, 2019 Assessment: Re-Assessment II (3) Stages of change: action Intervention Physician Consult: No Physician Referral: No Med Change: No Stress Management Class: Yes Uses Stress Management Skills: Yes Education Goals Met: No (we'll continue to educate throughout program. See education documented on previous ITP.) Target Goal Assess presence or absence of depression using a valid screening tool (1). Maximize coping skills (2). Positive support system (2). Patient/Program Goal Preventative Medication: Yes Aspirin, Yes Beta blockade, Yes Statin/OTR lipid Lowering Fall Risk Assess: Yes (positive for fall risk) Provider Assessment Session Number: 29 Provider Assessment: Proceed with rehab (good attitude and good attendance not progressing due to pain in rib cage from graft slows patient down.) Sarita Stewart RN Feb 16, 2019 13:41
--- NOTE | 2019-02-25 14:25 | CARECAPL ---
Assessment Account #s: Discharge General Diagnoses: CABG Date of event: Aug 01, 2018 Physician: Omar Ramos MD Allergies: Coded Allergies: MS - Butorphanol (Unverified Allergy, Unknown, 08/06/12) MS - Codeine (Unverified Allergy, Unknown, 08/06/12) MS - Doxazosin (Unverified Allergy, Unknown, VERTIGO, 08/06/12) MS - Erythromycin (Unverified Allergy, Unknown, 08/06/12) MS - Sulfa Drugs (Unverified Allergy, Unknown, 08/06/12) MS - Sulfa Drugs Cross Reactors (Unverified Allergy, Unknown, 08/06/12) Date Entered Program: Dec 01, 2018 Risk strat for cardiac event: High Exercise Date: Feb 25, 2019 Assessment: Followup/Discharge Stages of change: action Exercise Prescription Plan TO EDUCATE AND BUILD ENDURANCE THROUGH MONITORED EXERCISE PROGRAM Modalities initiated: Nustep (METS=4.0/RPE=3), Arm Aerometer (METS=2.5/RPE=3), Dumbells (5#/RPE=3), Recumbent Bike (METS=2.6/RPE=4) Frequency: 3 Duration (Minutes) 30 - 60 minutes total exercise a day. 15 - 20 work intervals in minutes. PRN rest intervals in minutes. Functional Capacity Goal Sustained Metabolic Equivalent of a task (MET) goal of 3.5-4.0 for 15-20 minutes. Intensity: 3-Moderate Progression (METS) Increase by: METS every: sessions Angina with ex: No Target Heart Rate REST +35-40 PER BETA EVELYN THERAPY Resistance Training: Yes Weight (pounds): 5 Reps: 12-15 Hypertension: Yes Hypertension controlled with: Medication (NORVASC,CLONIDINE,) Resting 136/84 Peak Exercise BP 140/70 Medications Scheduled Amlodipine Besylate (Amlodipine Besylate), 5 MG PO DAILY, (Reported) Aspirin (Aspirin EC), 325 MG PO DAILY, (Reported) Atorvastatin Calcium (Atorvastatin Calcium), 40 MG PO QHS, (Reported) Carvedilol (Carvedilol), 25 MG PO BID, (Reported) Clonidine Hcl (Clonidine HCl), 0.1 MG PO BID, (Reported) Docusate Sodium (Colace), 100 MG PO QPM, (Reported) Glipizide (Glipizide ER), 5 MG PO DAILY, (Reported) Iron Ag,Ps/C/Fa6/B12/Zn/SA/Sto (Niferex Tablet), 1 TAB PO DAILY, (Reported) Potassium Chloride (Potassium Chloride), 20 MEQ PO DAILY, (Reported) Sitagliptin (Januvia), 50 MG PO DAILY, (Reported) Torsemide (Torsemide), 20 MG PO DAILY, (Reported) Scheduled PRN Acetaminophen (Acetaminophen), 1,000 MG PO Q6H PRN for PAIN, (Reported) Inulin (Fiber Gummies), 1 TAB PO DAILYPRN PRN for BOWEL CARE/CONSTIPATION, (Reported) Lactobacillus Rhamnosus GG (Culturelle), 1 CAP PO DAILYPRN PRN for while taking by MD, (Reported) Current BP 114/70 Med Change: No Intervention Resistance Training: Yes Education Goals Met: Yes (SEE PREVIOUS ITP FOR EDUCATION THROUGHTOUT PROGRAM) Target Goals Individual exercise Rx (1) BP 140/90 or 130/80 if DM or CKD (1) Aerobic active 30+min 5 days per week (1) Nutrition Date: Feb 25, 2019 Assessment: Followup/Discharge Stages of change: action Lipid- med/supplement ATORVASTATIN Med Change: No Diabetes Diabetes: Yes Fasting Blood Sugar: 131 Diabetes medication GLIPIZIDE ER, JANUVIA Monitor Blood Sugar at home: Yes Medication Change: No Random Blood Sugar: 131 Blood sugar in range: Yes Weight Management Weight (lbs): 164 Special Diet: low salt, low-fat Current Weight (pounds): 164 Intervention 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: No Nurse/patient discussion: Yes Dietary Goals HEART HEALTHY CHOICES Diet Class: Yes Referral to Diabetes education: No Referral to lipid clinic: No Referral to weight mangement p: No Education S&S hypo/hyper glycemia, Relate Diabetes in CAD, Eating Healthy Education Goals Met: Yes Target goal LDL-C<100 if triglycerides are >200 Non-HDL-C should be <130 (1) LDL-C<70 for high risk patients (4) HbA1c<7% (1) BMI<25 Waist cir<40in M/<35in F (1) Education Date: Feb 25, 2019 Assessment: Followup/Discharge Learning Barriers: ready Knowledge Test Score: 10 Stages of change: action Family Support: Yes Tobacco use: No Tobacco Use Smokeless tobacco: No Intervention Referral to smoking cessation: No Individual education and couns: No Tobacco Adjunct: No Education class schedule given: No Attended education classes: No Education Goals Met: Yes (SEE PREVIOUS ITP FOR EDUCATION COMPLETED) Target Goals Complete cessation of tobacco use (1). Psychosocial Date: Feb 25, 2019 Assessment: Followup/Discharge Psych Test (Initial/Discharge) Tool Used: Other (PHQ-9) Score: 11 Stages of change: action Intervention Physician Consult: No Physician Referral: No Med Change: No Stress Management Class: No Uses Stress Management Skills: Yes Education Education: S/S depression, Relaxation Techniques Education Goals Met: Yes Target Goal Assess presence or absence of depression using a valid screening tool (1). Maximize coping skills (2). Positive support system (2). Patient/Program Goal Preventative Medication: Yes Aspirin, Yes Beta blockade, Yes Statin/OTR lipid Lowering Fall Risk Assess: Yes (PATIENT IS FALL RISK) Provider Assessment Session Number: 33 (EXCELLENT ATTENDENCE/RECEPTIVE TO EDUCATION PROVIDED) Greyson Swanson RN Feb 25, 2019 14:25
== END 2019-03-05 ==
LOC: M CR 09:36
PROVIDERS: ATTEND Internal Medicine Cardiovascular Disease
DX: Z95.1 Presence of aortocoronary bypass graft (principal)

== ENCOUNTER → 2019-03-11 | Outpatient (CLI) | payer MEDICARE ==
--- NOTE | 2019-03-11 10:43 | REP ---
Chest x-ray: Two views. History: Cough. Comparison study: July 27, 2018. Findings: There are mediastinal clips noted on the left anteriorly. There are clips in right upper quadrant of the abdomen as well. The heart is borderline with cardiothoracic ratio 48.5%. The thoracic aorta is calcific and a little tortuous. There is a dextroconvex thoracic scoliotic curvature again noted. Pleural angles are sharp. No infiltrate is seen in the lung peterson. Pulmonary vasculature is not increased. Impression: Borderline heart size. Mediastinal surgical clips. Scoliosis. Otherwise no acute disease. Electronically Signed by Spencer Helm MD 03/11/2019 10:34 A
== END ==
LOC: M CLY 09:01
PROVIDERS: ATTEND Family Medicine
DX: M41.9 Scoliosis, unspecified (principal); R05 Cough

== ENCOUNTER → 2019-03-16 | Outpatient (REF) | payer MEDICARE ==
[2019-03-16 18:09] LABS: URINE TOTAL PROTEIN 172.4 MG/DL (0-12)
[2019-03-16 18:15] LABS: TOTAL PROTEIN 7.5 GM/DL (6.4-8.2)
[2019-03-17 09:55] LABS: ALBUMIN 3.46 GM/DL (3.29-5.55); ALBUMIN % 46.1 % (55.8-66.1); ALPHA-1-GLOBULIN % 5.2 % (2.9-4.9); ALPHA-1-GLOBULINS 0.39 GM/DL (0.17-0.41); ALPHA-2-GLOBULINS 1.04 GM/DL (0.42-0.99); ALPHA-2-GLOBULINS % 13.9 % (7.1-11.8); BETA-1-GLOBULINS % 6.7 % (4.7-7.2); BETA-2-GLOBULINS 0.38 GM/DL (0.19-0.55); BETA-2-GLOBULINS % 5.1 % (3.2-6.5); GAMMA GLOBULINS 1.73 GM/DL (0.65-1.58)
[2019-03-19 00:06] LABS: FREE LAMBDA LIGHT CHAINS SERUM 76.7 mg/L (5.7-26.3); KAPPA/LAMBDA RATIO SERUM 2.06 (0.26-1.65)
== END ==
LOC: M LAB REF 17:09
PROVIDERS: ATTEND Internal Medicine Nephrology
DX: R80.9 Proteinuria, unspecified (principal)

== ENCOUNTER → 2019-03-26 | Outpatient (CLI) | payer MEDICARE ==
--- NOTE | 2019-04-02 00:47 | ECWPNPC ---
PATIENT NAME: ALEXANDER ALLEN : 1950 GENDER: FEMALE VISIT DATE: 03/26/2019 DISCHARGE DATE: 03/26/19 0000 VISIT LOCKED DATE TIME: PHYSICIAN: RIMMA COATS MD RESOURCE: RIMMA COATS MD REASON FOR APPOINTMENT 1. CHRONIC CHEST PAIN HISTORY OF PRESENT ILLNESS PAIN SCREENING: PATIENT HAS A COMPLAINT OF ACUTE OR CHRONIC PAIN :YES 68 YEAR OLD FEMALE PATIENT WITH A HISTORY OF CHRONIC CHEST WALL PAIN. THE PATIENT DESCRIBES THE PAIN ACHING, BURNING, STABBING, SQUEEZING, AND DAILY WITH A PAIN SCORE OF 4-10/10 DEPENDING ON PHYSICAL ACTIVITY. THE PATIENT STATES HER PAIN IS MAINLY OVER HER LEFT COSTAL MARGIN, STERNUM, AND SPINE. THE PATIENT SAYS HER PAIN IS CONSTANT WHILE LYING DOWN OR MOVING AROUND. THE PATIENT SAYS DEPENDING ON HER POSTURE, HER PAIN INTENSELY INCREASES. THE PATIENT SAYS SHE USES ASPIRIN 325 EVERY DAY SHE IS UNABLE TO USE IBUPROFEN. THE PATIENT MENTIONS SHE HAD A QUADRUPLE BYPASS IN JULY OF THIS YEAR. THEN IN AUGUST 2018, SHE HAD A WOUND REPAIR, WIRE REMOVAL, AND WOUND VAC THAT ENDED UP BECOMING INFECTED AND SHE HAD HER THIRD SURGERY FOR CLOSURE OF CHEST WOUND IN OCTOBER 2018. PATIENT DENIES UNEXPLAINABLE WEIGHT LOSS, FEVER, CHILLS, NEW CHANGES ON HER URINARY OR BOWEL CONTROL. FALL RISK SCREENING: SCREENING :NO FALLS REPORTED IN THE LAST YEAR CURRENT MEDICATIONS TAKING FREESTYLE LITE - DEVICE DIRECTED FOR HOME BS MONITORING DX: E11.9 TAKING FREESTYLE LITE TEST - STRIP DIRECTED IN VITRO CHECK BS DAILY DX E11.9 TAKING MELATONIN 3 MG TABLET 1 TABLET AT BEDTIME NEEDED WITH FOOD ORALLY ONCE A DAY TAKING JANUVIA 50 MG TABLET DIRECTED ORALLY ONCE A DAY TAKING IRON 325 (65 FE) MG TABLET 1 TABLET ORALLY ONCE A DAY TAKING FIBER ADULT GUMMIES 2 GM TABLET CHEWABLE DIRECTED ORALLY 2-3 DAILY NEEDED TAKING NORVASC 5 MG TABLET 1 TABLET ORALLY ONCE A DAY TAKING COLACE 100 MG CAPSULE 1 CAPSULE NEEDED ORALLY TWICE DAILY TAKING ASPIRIN EC 325 MG TABLET DELAYED RELEASE 1 TABLET ORALLY ONCE A DAY TAKING ZOFRAN 4 MG TABLET 1 TABLET ORALLY ONCE A DAY NEEDED TAKING TORSEMIDE 20 MG TABLET 1 TABLET ORALLY ONCE A DAY TAKING KLOR-CON M20 20 MEQ TABLET EXTENDED RELEASE 1 TABLET WITH FOOD ORALLY ONCE A DAY TAKING CARVEDILOL 25 MG TABLET 1 TAB ORALLY TWICE DAILY TAKING VENTOLIN HFA 108 (90 BASE) MCG/ACT AEROSOL SOLUTION 2 PUFFS NEEDED INHALATION EVERY 6 HRS TAKING ATORVASTATIN CALCIUM 40 MG TABLET 1 TABLET ORALLY DAILY AT BEDTIME TAKING GLIPIZIDE 10 MG TABLET 1 TABLET ORALLY BID NOT-TAKING CLONIDINE HCL 0.1 MG TABLET 1 TABLET ORALLY ONCE A DAY MEDICATION LIST REVIEWED AND RECONCILED WITH THE PATIENT PAST MEDICAL HISTORY DIABETES MELLITUS TYPE 2 CHRONIC NECK AND BACK PAIN - COMP CHRONIC HEP C GENOTYPE 1 B, HCV RNA 5 MILLION HIATAL HERNIA GERD HTN TOBACCO USE, QUIT 2018, SMOKED 1-1.5 PPD X 50 YEARS; DECLINES LDLCT CAD, S/P CABG - DR. BRITO CKD3 - DR. ZHOU ALLERGIES CARDURA: VERTIGO - SIDE EFFECTS HALDOL: UNKNOWN - SIDE EFFECTS SULFACET-R: RASH - ALLERGY CODEINE SULFATE: RASH,SOB - ALLERGY ERYTHROMYCIN: RASH - ALLERGY SURGICAL HISTORY URETER IMPLANTATION LT SIDE/APPENDECTOMY 1975 HYSTERECTOMY 05/1978 GALLBLADDER REMOVAL 1990 COLONOSCOPY - HYPERPLASTIC POLYP; DR. ODEN 2010 EGD 02/28/15 STRESS TEST 03/13/17 CABG W/ [facility]FTS-[facility] 08/01/18 HAD TO TAKE OUT WIRES , WOUND VAC, THEN WENT BACK AND THEY CLOSED THE WOUND VAC 08/2018 CYST REMOVED FROM [place] 1977 FAMILY HISTORY FATHER: , ALCOHOLISM, CANCER, STOMACH MOTHER: , DIAB, DIABETES, HYPERTENSION SIBLINGS: ALIVE, BROTHER OF LUNG CA DAUGHTER(S): ALIVE, ONE DAUGHTER HAS FIBROMYALGIA AND POLYCYSTIC [place] 3 BROTHER(S) . 2DAUGHTER(S) . DAUGHTER DIAGNOSED WITH RA-SEEING DOCTOR IN [place].--BROTHER WITH KIDNEY ISSUES-BORN WITH ONE KIDNEY. SOCIAL HISTORY GENERAL: TOBACCO USE ARE YOU A:FORMER SMOKER HOW LONG HAS IT BEEN SINCE YOU LAST SMOKED?6-12 MONTHS ADDITIONAL FINDINGS: TOBACCO USERTRIVIAL CIGARETTE SMOKER (LESS THAN ONE CIGARETTE/DAY) -07/27/18- LAST SMOKED VAPORNO E-CIGARETTENO SMOKING CESSATION INFORMATION GIVEN08/20/2018 HIV / HEP-C SCREENING HIV TEST OFFERED TO PATIENT:YES DATE OFFERED:08/20/2018 TEST ACCEPTED:NO HEP-C TEST OFFERED TO PATIENT:YES DATE OFFERED:08/20/2018 REASON:PATIENT DECLINED TEST ACCEPTED:NO REASON:PATIENT DECLINED BROCHURE PROVIDED TO PATIENTNO DECLINES OTHERS AT HOME: SPOUSE. EDUCATION LEVEL OF EDUCATION:FINISHED COLLEGE DIET: REGULAR, NO CONCENTRATED SWEETS.. LANGUAGE LANGUAGES SPOKEN:ESTONIAN DOMESTIC VIOLENCE DO YOU FEEL SAFE IN YOUR ENVIRONMENT?YES BMI CARE GOAL FOLLOW-UP ABOVE NORMAL BMI FOLLOW-UPDIETARY MANAGEMENT EDUCATION, GUIDANCE, AND COUNSELING -27.5 RECREATIONAL DRUG USE DRUG USE?NO EXERCISE: WALKS. LEARNING BARRIERS / SPECIAL NEEDS CHANGE FROM LAST VISIT?NO BARRIERS TO LEARNING?NO HEARING IMPAIRED?NO VISION IMPAIRED?YES :CORRECTIVE LENSES READING GLASSES COGNITIVELY IMPAIRED?NO READINESS TO LEARN?YES LEARNING PREFERENCES?NO LEARNING CAPABILITIES PRESENT?YES EMOTIONAL BARRIERS?NO SPECIAL DEVICES?NO SOIL SPECIALIST NEEDED?NO PAIN CLINIC PFS, CLERGY, PUBLIC HEALTH REFERRALS HAS THE PATIENT BEEN EDUCATED REGARDING HIS/HER PLAN OF CARE?YES HAS THE PATIENT BEEN EDUCATED REGARDING PAIN, THE RISK FOR PAIN, THE IMPORTANCE OF EFFECTIVE PAIN MANAGEMENT, AND THE PAIN ASSESSMENT PROCESS?YES LATEX QUESTIONNAIRE LATEX ALLERGY : HAVE YOU EVER DEVELOPED ANY TYPE OF REACTION AFTER HANDLING LATEX PRODUCTS SUCH RUBBER GLOVES, CONDOMS, DIAPHRAGMS, BALLOONS, SOCKS, OR UNDERWEAR?NO LATEX ALLERGY : HAVE YOU EVER DEVELOPED ANY TYPE OF REACTION DURING OR AFTER DENTAL APPOINTMENT, VAGINAL/RECTAL EXAMINATION, SURGICAL PROCEDURE, OR ANY OTHER EXPOSURE?NO LATEX RISK : HAVE YOU EVER HAD ANY DIFFICULTY BREATHING OR HIVES AFTER EATING OR HANDLING ANY FRUITS, OR VEGETABLES; SUCH KIWI, BANANAS, STONE FRUITS, OR CHESTNUTSNO LATEX RISK : DO YOU HAVE A PREVIOUS PERSONAL HISTORY OF MORE THAN NINE SURGERIES, SPINA BIFIDA, OR REPEATED CATHERIZATIONS? YES - PLEASE INDICATE : > 9 SURGERIES LATEX RISK : ARE YOU FREQUENTLY EXPOSED TO LATEX PRODUCTS IN YOUR OCCUPATION?NO DATE ASKED : 03/26/2019 [place] 2-5/DAY. ADVANCE DIRECTIVE ADVANCE DIRECTIVE DISCUSSED WITH PATIENT:YES PT HAS HCP-FERMÍN TOMLINSON [phone] QUAKER [id number] CONGREGATIONAL MARITAL STATUS: . ALCOHOL SCREENING POINTS: 0, INTERPRETATION: NEGATIVE. OCCUPATION: DISABLED. SEXUAL HX HAD SEX IN THE LAST 12 MONTHS (VAGINAL, ORAL, OR ANAL)?YES WITHMEN ONLY PREVENTION STRATEGIES DISCUSSED:OTHER USE PROTECTION?NO HAVE YOU EVER HAD AN STD?NO HOSPITALIZATION/MAJOR DIAGNOSTIC PROCEDURE CHILD X2 [facility] 10/10/14 [facility] SUR[facility]ERY 07/27/18 [facility] 08/2018&09/2018 REVIEW OF SYSTEMS REVIEWED BY: PROVIDER: RIMMA COATS MD . CONSTITUTIONAL: ANY CHANGE IN YOUR MEDICAL CONDITION? NO . CHILLS NO . FEVER NO . INFECTION: DO YOU HAVE NEW INFECTIONS? NO . DO YOU HAVE HISTORY OF MRSA? NO . MUSCULOSKELETAL: ANY NEW PATTERNS OF PAIN OR NUMBNESS? YES, SINCE LAST SURGERY HAS HAD PAIN FROM STERNUM, UNDER BREAST AND DOWN LEFT RIB CAGE. UNABLE TO GET COMFORTABLE AT ALL TO SLEEP. NUMBNESS RIGHT ARM AND HAND SINCE HER SURGERY 09/2018 . SYTEMIC LUPUS NO . GASTROENTEROLOGY: ANY NEW CHANGE IN BOWEL CONTROL? NO . BARRETTS ESOPHAGUS NO . CIRRHOSIS NO . HEPATITIS YES, HEP C . LIVER FAILURE NO . ACID REFLUX NO . UNEXPLAINED WEIGHT LOSS NO . GENITOURINARY: ANY NEW CHANGE IN BLADDER CONTROL? NO . IS THERE A CHANCE YOU COULD BE ? NO . HEMATOLOGY/LYMPH: DO YOU TAKE ANY BLOOD THINNERS? (FOR EXAMPLE- COUMADIN, PLAVIX, AGGRENOX, PLATEL, PRADAXA, OR XARELTO) NO . WHEN WAS YOUR LAST DOSE? DATE: TIME: . LOW PLATELET COUNT NO . SICKLE CELL DISEASE NO . VON WILLIEBRANDS NO . FACTOR V LEIDEN NO . THALLASEMIA NO . ANEMIA YES-ON IRON . EASY BRUISING YES . NEUROLOGY: HAVE YOU FALLEN IN THE PAST 12 MONTHS? YES IN EARLY JULY-FELL WHILE GETTING OUT OF THE CAR. JUST BRUISED HER KNEES . ANY NEW EXTREMITY NUMBNESS OR WEAKNESS? NO . HEAD INJURY NO . DEMENTIA NO . CEREBRAL PALSY NO . MULTIPLE SCLEROSIS NO . DIZZINESS NO . HEADACHE ADMITS, FREQUENT MILD HEADACHES . STROKES NO . VERTIGO NO . CARDIOLOGY: DO YOU HAVE A PACEMAKER OR DEFIBRILLATOR? NO . ANGINA YES . HEART ATTACK YES . HEART SURGERY YES, BYPASS GRAFTS . CONGESTIVE HEART FAILURE/FLUID OVERLOAD ? NOT SURE . CHEST PAIN NO . HIGH BLOOD PRESSURE ON MEDICATION(S) . IRREGULAR HEART BEAT YES, NO PARTICULAR DIAGNOSIS WAS TOLD IT WAS "REGULARLY IRREGULAR" . RESPIRATORY: HAVE YOU BEEN SICK IN THE PAST WEEK? YES, JUST FINISHED DOXYCYCLINE . FEVER NO . FLU LIKE SYMPTOMS? NO . CPAP NO . BYPAP NO . ASTHMA NO . EMPHYSEMA NO . CHRONIC LUNG DISEASES NO . SHORTNESS OF BREATH ON EXERTION YES . COUGH YES, JUST GETTING OVER URI . SNORING YES . INTEGUMENTARY: DO YOU HAVE ANY RASHES OR OPEN SORES? NO . ALLERGIC/IMMUNO: ARE YOU ALLERGIC TO IV DYE? NO . ANY NEW ALLERGIES? NO . PSYCHIATRIC: DO YOU HAVE THOUGHTS OF HURTING YOURSELF OR SOMEONE ELSE? NO . ARE YOU ABUSED, NEGLECTED, OR IN AN UNSAFE ENVIRONMENT? NO . ENDOCRINOLOGY: ARE YOU DIABETIC? YES . THYROID DISORDER NO . OTHER: DO YOU NEED ANY PRESCRIPTIONS? YES . IF YES, PLEASE LIST: TRAMADOL OR HYDROCODONE . ANY NEW PROBLEMS WITH YOUR MEDICATIONS? NO . WHEN DID YOU LAST EAT? ____ . WHEN DID YOU LAST DRINK? ____ . WHAT DID YOU LAST DRINK? ____ . NAME OF PERSON DRIVING YOU HOME? ____ . DO YOU HAVE ANY OTHER QUESTIONS OR CONCERNS YES, HAS TRIED OXYCODONE WHICH DOESN'T HELP THE PAIN, IT JUST MADE HER FEEL HIGH AND NAUSEATED . VITAL SIGNS WT 172.3 LBS, HT 64.5 IN, BMI 29.12 INDEX, BP 178/75 MM HG, HR 80 /MIN, RR 18 /MIN, TEMP 98.0 F, OXYGEN SAT % 100%, SAFE IN ENV? (Y/N) Y, NA INITIALS SC 15:29, REVIEWED BY: RAMOS. EXAMINATION GENERAL EXAMINATION: PATIENT IS ALERT O X 3 AND COOPERATIVE. LUNGS CLEAR, TO AUSCULTATION. HEART: NO MURMURS OR GALLOPS; FACIAL CRANIAL NERVES ARE GROSSLY NORMAL. GOOD SYMMETRY OF FACIAL MUSCLE MOVEMENT. NORMAL VISUAL SORIANO. ONE-FOOT LONG SURGICAL SCAR PRESENT OVER MEDICAL STERNUM AREA. TENDERNESS OVER LATERAL ASPECT OF STERNUM AND LEFT AREA OF XIPHOID PROCESS. TENDERNESS OVER LEFT RIB AREA APPROXIMATELY T5-T6 LEVEL. ASSESSMENTS STERNUM PAIN - R07.89 (PRIMARY) HISTORY OF STERNECTOMY - Z98.890 SURGICAL SCAR --LEFT STERNAL AREAR/O INTERCOSTAL NEURALGIA. TREATMENT STERNUM PAIN CLINICAL NOTES: WE DISCUSSED SEVERAL ISSUES WITH MS. ALLEN'S PAIN MANAGEMENT CASE. I WOULD LIKE TO ORDER VOLTAREN GEL TO VICE PRESIDENT FOR INSTRUCTION IN PAIN RELIEF FOR THE PATIENT. HOWEVER, I WILL FIRST REQUEST CLEARANCES FROM THE PATIENT'S RADIOLOGY ADMINISTRATOR, DR. BRITO, AND MECHANIC FOREMAN, DR. ZHOU. IF THEY AGREE WE WILL PRESCRIBE VOLTAREN GEL. I DISCUSSED THE OPTIONS OF PERFORMING A SCAR NEUROMA INJECTION OR AN INTERCOSTAL BLOCK, BUT THE PATIENT EXPRESSED CONCERNS OF INFECTION, SO WE WILL HOLD OFF ON INJECTION THERAPY FOR NOW. IN THE FUTURE, IF EITHER OF THOSE INJECTIONS DON'T OFFER PAIN RELIEF FOR THE PATIENT, WE MAY CONSIDER TRYING FOR A DCS TRIAL. I WILL REFER THE PATIENT TO [facility]'S PALLIATIVE CARE STAR PROGRAM TO CONSIDER MEDICATION MANAGEMENT, INCLUDING MEDICAL MARIJUANA. THE PATIENT WILL FOLLOW UP WITH THE NURSE PRACTITIONER IN 4 MONTHS TO CONSIDER INJECTION THERAPY OR A DCS TRIAL. INSTRUCTIONS WERE GIVEN, QUESTIONS WERE ANSWERED, PATIENT REPORTS UNDERSTANDING AND AGREES WITH THE PLAN. I, DEZ RODRÍGUEZ, DOCUMENTED THE ABOVE INFORMATION ACTING A SCRIBE FOR DR. COATS. I HAVE REVIEWED THE ABOVE DOCUMENT, WRITTEN BY DEZ CHARLESIBAmrik AND I VERIFY THAT IT IS ACCURATE. DEAR MARLENE BRITO MD: THANK YOU FOR YOUR KIND REFERRAL OF ALEXANDER ALLEN. IF YOU WANT TO DISCUSS HER CASE WITH ME PLEASE CALL ME AT THE PAIN CENTER AT [phone]. SINCERELY, RIMMA COATS MD PAIN MEDICINE . PROCEDURE CODES FA211 ESTABILISHED PATIENT [facility] FACILITY CHARGE [id number] CURRENT MEDS W/DOSAGES DOCUMENTED G8730 PAIN ASSESS POS TOOL F/U PLAN DOC DISPOSITION & COMMUNICATION FOLLOW UP 4 MONTHS (REASON: F/UP W/ WOOL CLASSER 4 MONTHS/NEED CLEARANCE FROM RADIOLOGY ADMINISTRATOR & MECHANIC FOREMAN FOR VOLTAREN GEL/REFERRING TO PALLIATIVE CARE FOR MED MANAGE) ELECTRONICALLY SIGNED BY RIMMA COATS MD, MD ON 04/01/2019 AT 04:04 PM EST DISCLAIMER : THIS IS A VISIT SUMMARY EXTRACTED FROM THE [employer] CHART. IT IS NOT A COPY OF THE [employer] PROGRESS NOTE. MTDD
== END ==
LOC: M PAIN 15:30
PROVIDERS: ATTEND Anesthesiology
DX: R07.89 Other chest pain (principal); G89.29 Other chronic pain; Z98.890 Other specified postprocedural states; E11.9 Type 2 diabetes mellitus without complications; I10 Essential (primary) hypertension; F17.210 Nicotine dependence, cigarettes, uncomplicated; Z88.1 Allergy status to other antibiotic agents; Z88.5 Allergy status to narcotic agent; Z88.8 Allergy status to other drugs, medicaments and biological substances; I25.2 Old myocardial infarction; Z79.82 Long term (current) use of aspirin; Z79.84 Long term (current) use of oral hypoglycemic drugs; Z79.899 Other long term (current) drug therapy

== ENCOUNTER → 2019-05-13 | Outpatient (CLI) | payer MEDICARE ==
--- NOTE | 2019-05-13 14:35 | REP ---
CHEST, TWO VIEWS: Two views of the chest are performed and compared to prior study of 03/11/2019. No acute infiltrate is seen. There is mild cardiomegaly. The mediastinal silhouette is unchanged. There is osteopenia. IMPRESSION: Mild cardiomegaly. No evidence of acute infiltrate or pulmonary edema. Electronically Signed by James Barbosa MD 05/13/2019 08:03 P
== END ==
LOC: M CLY 13:38
PROVIDERS: ATTEND Internal Medicine Cardiovascular Disease
DX: I51.7 Cardiomegaly (principal); I25.10 Atherosclerotic heart disease of native coronary artery without angina pectoris

== ENCOUNTER → 2019-07-08 | Outpatient (CLI) | payer MEDICARE ==
--- NOTE | 2019-07-10 02:57 | ECWPNPC ---
PATIENT NAME: ALEXANDER ALLEN : 1950 GENDER: FEMALE VISIT DATE: 07/08/2019 DISCHARGE DATE: 07/08/19 1123 VISIT LOCKED DATE TIME: PHYSICIAN: LIZ PAGAN RESOURCE: LIZ PAGAN REASON FOR APPOINTMENT 1. DISCUSS TX OPTIONS HISTORY OF PRESENT ILLNESS GENERAL: 68-YEAR-OLD FEMALE IN FOR CHRONIC PAIN FOLLOW-UP. SHE RATES HER PAIN CURRENTLY AT A 4 OUT OF 10 AND DESCRIBES IT ACHING, BURNING, SORE, AND TENDER. SHE HAS BEEN SEEN BY THE [facility] IS CURRENTLY ON HYDROCODONE AND FEELS THIS IS WORKING WELL TO HELP MANAGE HER PAIN. HISTORY OF PRESENT ILLNESS: PAIN THE PATIENT DESCRIBES THE PAIN... FALL RISK SCREENING: SCREENING :NO FALLS REPORTED IN THE LAST YEAR CURRENT MEDICATIONS TAKING FREESTYLE LITE - DEVICE DIRECTED FOR HOME BS MONITORING DX: E11.9 TAKING IRON 325 (65 FE) MG TABLET 1 TABLET ORALLY ONCE A DAY TAKING COLACE 100 MG CAPSULE 1 CAPSULE NEEDED ORALLY TWICE DAILY TAKING ASPIRIN EC 325 MG TABLET DELAYED RELEASE 1 TABLET ORALLY ONCE A DAY TAKING KLOR-CON M20 20 MEQ TABLET EXTENDED RELEASE 1 TABLET WITH FOOD ORALLY ONCE A DAY TAKING CARVEDILOL 25 MG TABLET 1 TAB ORALLY TWICE DAILY TAKING FREESTYLE LITE TEST - STRIP DIRECTED IN VITRO CHECK BS DAILY DX E11.9 TAKING TORSEMIDE 20 MG TABLET 2 TABLETS ORALLY ONCE A DAY TAKING GLIPIZIDE 10 MG TABLET 1 TABLET ORALLY BID TAKING FAMOTIDINE 40 MG TABLET 1 TABLET AT BEDTIME ORALLY ONCE A DAY TAKING NORVASC 5 MG TABLET 1 TABLET ORALLY ONCE A DAY TAKING ATORVASTATIN CALCIUM 40 MG TABLET 1 TABLET ORALLY DAILY AT BEDTIME TAKING JANUVIA 50 MG TABLET 1 TABLET ORALLY ONCE A DAY TAKING HYDROCODONE-ACETAMINOPHEN 5-325 MG TABLET 1 TABLET NEEDED ORALLY 3 TIMES A DAY NEEDED NOT-TAKING FIBER ADULT GUMMIES 2 GM TABLET CHEWABLE DIRECTED ORALLY 2-3 DAILY NEEDED NOT-TAKING GABAPENTIN 100 MG CAPSULE 1 CAPSULE DAILY X 1 WEEK, THEN 1 TAB BID X 1 WEEK, THEN 1 TAB TID ORALLY TID NOT-TAKING ONGLYZA 2.5 MG TABLET 1 TABLET ORALLY ONCE A DAY NOT-TAKING DICLOFENAC SODIUM 1 % GEL 1 APPLICATION TRANSDERMAL TWICE A DAY PRN FOR PAIN NOT-TAKING MELATONIN 3 MG TABLET 1 TABLET AT BEDTIME NEEDED WITH FOOD ORALLY ONCE A DAY NOT-TAKING ZOFRAN 4 MG TABLET 1 TABLET ORALLY ONCE A DAY NEEDED NOT-TAKING VENTOLIN HFA 108 (90 BASE) MCG/ACT AEROSOL SOLUTION 2 PUFFS NEEDED INHALATION EVERY 6 HRS NOT-TAKING CLONIDINE HCL 0.1 MG TABLET 1 TABLET ORALLY ONCE A DAY MEDICATION LIST REVIEWED AND RECONCILED WITH THE PATIENT PAST MEDICAL HISTORY DIABETES MELLITUS TYPE 2 CHRONIC NECK AND BACK PAIN - COMP CHRONIC HEP C GENOTYPE 1 B, HCV RNA 5 MILLION HIATAL HERNIA GERD HTN TOBACCO USE, QUIT 2018, SMOKED 1-1.5 PPD X 50 YEARS; DECLINES LDLCT CAD, S/P CABG - DR. BRITO CKD3 - DR. ZHOU ALLERGIES CARDURA: VERTIGO - SIDE EFFECTS HALDOL: UNKNOWN - SIDE EFFECTS SULFACET-R: RASH - ALLERGY CODEINE SULFATE: RASH,SOB - ALLERGY ERYTHROMYCIN: RASH - ALLERGY GABAPENTIN: DIZZINESS - SIDE EFFECTS VOLTAREN: BURNING, REDNESS SKIN - SIDE EFFECTS METAL USED DURING HEART SURGERY: SKIN REDNESS - ALLERGY SURGICAL HISTORY URETER IMPLANTATION LT SIDE/APPENDECTOMY 1975 HYSTERECTOMY 05/1978 GALLBLADDER REMOVAL 1990 COLONOSCOPY - HYPERPLASTIC POLYP; DR. ODEN 2010 EGD 02/28/15 STRESS TEST 03/13/17 CABG W/4 [facility]FTS-[facility] 08/01/18 HAD TO TAKE OUT WIRES , WOUND VAC, THEN WENT BACK AND THEY CLOSED THE WOUND VAC 08/2018 CYST REMOVED FROM [facility] 1977 FAMILY HISTORY FATHER: , ALCOHOLISM, CANCER, STOMACH MOTHER: , DIAB, DIABETES, HYPERTENSION SIBLINGS: ALIVE, BROTHER OF L[place]G [place] DAUGHTER(S): ALIVE, ONE DAUGHTER HAS FIBROMYALGIA AND POLYCYSTIC [place] 3 BROTHER(S) . [facility] [place] . DAUGHTER DIAGNOSED WITH RA-SEEING DOCTOR IN [place].--BROTHER WITH KIDNEY ISSUES-BORN WITH ONE KIDNEY. SOCIAL HISTORY GENERAL: TOBACCO USE ARE YOU A:FORMER SMOKER HOW LONG HAS IT BEEN SINCE YOU LAST SMOKED?6-12 MONTHS ADDITIONAL FINDINGS: TOBACCO USERTRIVIAL CIGARETTE SMOKER (LESS THAN ONE CIGARETTE/DAY) -07/27/18- LAST SMOKED VAPORNO E-CIGARETTENO SMOKING CESSATION INFORMATION GIVEN08/20/2018 HIV / HEP-C SCREENING HIV TEST OFFERED TO PATIENT:YES DATE OFFERED:08/20/2018 TEST ACCEPTED:NO HEP-C TEST OFFERED TO PATIENT:YES DATE OFFERED:08/20/2018 REASON:PATIENT DECLINED TEST ACCEPTED:NO REASON:PATIENT DECLINED BROCHURE PROVIDED TO PATIENTNO DECLINES OTHERS AT HOME: SPOUSE. EDUCATION LEVEL OF EDUCATION:FINISHED COLLEGE DIET: REGULAR, NO CONCENTRATED SWEETS.. LANGUAGE LANGUAGES SPOKEN:SYRIAC DOMESTIC VIOLENCE DO YOU FEEL SAFE IN YOUR ENVIRONMENT?YES BMI CARE GOAL FOLLOW-UP ABOVE NORMAL BMI FOLLOW-UPDIETARY MANAGEMENT EDUCATION, GUIDANCE, AND COUNSELING -27.5 RECREATIONAL DRUG USE DRUG USE?NO EXERCISE: WALKS. LEARNING BARRIERS / SPECIAL NEEDS CHANGE FROM LAST VISIT?NO BARRIERS TO LEARNING?NO HEARING IMPAIRED?NO VISION IMPAIRED?YES COGNITIVELY IMPAIRED?NO :CORRECTIVE LENSES READING GLASSES READINESS TO LEARN?YES LEARNING PREFERENCES?NO LEARNING CAPABILITIES PRESENT?YES EMOTIONAL BARRIERS?NO SPECIAL DEVICES?NO POWER NUT RUNNER OPERATOR NEEDED?NO PAIN CLINIC PFS, CLERGY, PUBLIC HEALTH REFERRALS HAS THE PATIENT BEEN EDUCATED REGARDING HIS/HER PLAN OF CARE?YES HAS THE PATIENT BEEN EDUCATED REGARDING PAIN, THE RISK FOR PAIN, THE IMPORTANCE OF EFFECTIVE PAIN MANAGEMENT, AND THE PAIN ASSESSMENT PROCESS?YES LATEX QUESTIONNAIRE LATEX ALLERGY : HAVE YOU EVER DEVELOPED ANY TYPE OF REACTION AFTER HANDLING LATEX PRODUCTS SUCH RUBBER GLOVES, CONDOMS, DIAPHRAGMS, BALLOONS, SOCKS, OR UNDERWEAR?NO LATEX ALLERGY : HAVE YOU EVER DEVELOPED ANY TYPE OF REACTION DURING OR AFTER DENTAL APPOINTMENT, VAGINAL/RECTAL EXAMINATION, SURGICAL PROCEDURE, OR ANY OTHER EXPOSURE?NO DATE ASKED : 03/26/2019 LATEX RISK : HAVE YOU EVER HAD ANY DIFFICULTY BREATHING OR HIVES AFTER EATING OR HANDLING ANY FRUITS, OR VEGETABLES; SUCH KIWI, BANANAS, STONE FRUITS, OR CHESTNUTSNO LATEX RISK : DO YOU HAVE A PREVIOUS PERSONAL HISTORY OF MORE THAN NINE SURGERIES, SPINA BIFIDA, OR REPEATED CATHERIZATIONS? YES - PLEASE INDICATE : > 9 SURGERIES LATEX RISK : ARE YOU FREQUENTLY EXPOSED TO LATEX PRODUCTS IN YOUR OCCUPATION?NO CAFFEINE 2-5/DAY. ADVANCE DIRECTIVE ADVANCE DIRECTIVE DISCUSSED WITH PATIENT:YES PT HAS HCP-FERMÍN TOMLINSON [phone] BAPTISM [id number] CHURCH MARITAL STATUS: . ALCOHOL SCREENING POINTS: 0, INTERPRETATION: NEGATIVE. OCCUPATION: DISABLED. SEXUAL HX HAD SEX IN THE LAST 12 MONTHS (VAGINAL, ORAL, OR ANAL)?YES WITHMEN ONLY PREVENTION STRATEGIES DISCUSSED:OTHER USE PROTECTION?NO HAVE YOU EVER HAD AN STD?NO HOSPITALIZATION/MAJOR DIAGNOSTIC PROCEDURE CHILD X2 [facility] 07/27/18 [facility] 08/2018&09/2018 REVIEW OF SYSTEMS REVIEWED BY: PROVIDER: LOGAN CRAWFORD . CONSTITUTIONAL: ANY CHANGE IN YOUR MEDICAL CONDITION? NO . CHILLS NO . FEVER NO . INFECTION: DO YOU HAVE NEW INFECTIONS? NO . DO YOU HAVE HISTORY OF MRSA? NO . MUSCULOSKELETAL: ANY NEW PATTERNS OF PAIN OR NUMBNESS? NO . GASTROENTEROLOGY: ANY NEW CHANGE IN BOWEL CONTROL? NO . GENITOURINARY: ANY NEW CHANGE IN BLADDER CONTROL? NO . IS THERE A CHANCE YOU COULD BE ? NO . HEMATOLOGY/LYMPH: DO YOU TAKE ANY BLOOD THINNERS? (FOR EXAMPLE- COUMADIN, PLAVIX, AGGRENOX, PLATEL, PRADAXA, OR XARELTO) NO . WHEN WAS YOUR LAST DOSE? DATE: TIME: . NEUROLOGY: HAVE YOU FALLEN IN THE PAST 12 MONTHS? NO . ANY NEW EXTREMITY NUMBNESS OR WEAKNESS? NO . CARDIOLOGY: DO YOU HAVE A PACEMAKER OR DEFIBRILLATOR? NO . RESPIRATORY: HAVE YOU BEEN SICK IN THE PAST WEEK? NO . FEVER NO . FLU LIKE SYMPTOMS? NO . COUGH NO . INTEGUMENTARY: DO YOU HAVE ANY RASHES OR OPEN SORES? NO . ALLERGIC/IMMUNO: ARE YOU ALLERGIC TO IV DYE? NO . ANY NEW ALLERGIES? NO . PSYCHIATRIC: DO YOU HAVE THOUGHTS OF HURTING YOURSELF OR SOMEONE ELSE? NO . ARE YOU ABUSED, NEGLECTED, OR IN AN UNSAFE ENVIRONMENT? NO . ENDOCRINOLOGY: ARE YOU DIABETIC? NO . OTHER: DO YOU NEED ANY PRESCRIPTIONS? NO . IF YES, PLEASE LIST: ____ . ANY NEW PROBLEMS WITH YOUR MEDICATIONS? NO . WHEN DID YOU LAST EAT? ____ . WHEN DID YOU LAST DRINK? ____ . WHAT DID YOU LAST DRINK? ____ . NAME OF PERSON DRIVING YOU HOME? ____ . DO YOU HAVE ANY OTHER QUESTIONS OR CONCERNS NO . VITAL SIGNS WT 171.8 LBS, HT 64.5 IN, BMI 29.03 INDEX, BP 166/74 MM HG, HR 77 /MIN, RR 18 /MIN, TEMP 96.7 F, OXYGEN SAT % 100%, NA INITIALS [id number], REVIEWED BY: LS. EXAMINATION GENERAL EXAMINATION: GENERALNO ACUTE DISTRESS, WELL NOURISHED AND HYDRATED. PSYCHAPPROPRIATE MOOD AND AFFECT . LUNGS:CLEAR TO AUSCULTATION BILATERALLY, NO WHEEZES, RHONCHI, RALES. HEART:NO MURMURS, REGULAR RATE AND RHYTHM. ASSESSMENTS STERNUM PAIN - R07.89 (PRIMARY) TREATMENT STERNUM PAIN CLINICAL NOTES: 68-YEAR-OLD FEMALE IN FOR CHRONIC PAIN FOLLOW-UP. GIVEN PRESENTING SYMPTOMS AND RESULTS OF PHYSICAL EXAMINATION RECOMMENDED CONTINUATION OF MEDICATION MANAGEMENT BY [facility]. DISCUSSED PROCEDURES AND PATIENT DECLINES PROCEDURES AT THIS TIME. SHE WAS INFORMED THAT SHOULD SHE DECIDE TO PURSUE A PROCEDURE SHE COULD COME BACK WITHIN THE NEXT YEAR AND NOT NEED A NEW REFERRAL. PATIENT HAS EXPRESSED UNDERSTANDING OF AND WAS IN AGREEMENT WITH TREATMENT PLAN. GIVEN TIME TO ASK QUESTIONS AND EXPRESS CONCERNS. PROCEDURE CODES FA211 ESTABILISHED PATIENT [facility] CHAR[facility] DISPOSITION & COMMUNICATION FOLLOW UP NEEDED (REASON: STERNAL PAIN) ELECTRONICALLY SIGNED BY BEATRIZ CASTAÑEDA ON 07/09/2019 AT 10:51 AM EST DISCLAIMER : THIS IS A VISIT SUMMARY EXTRACTED FROM THE [employer] CHART. IT IS NOT A COPY OF THE [employer] PROGRESS NOTE. CINTHIA
== END ==
LOC: M PAIN 11:15
PROVIDERS: ATTEND Family Medicine
DX: R07.89 Other chest pain (principal)

== ENCOUNTER → 2019-08-14 | Outpatient (REF) | payer MEDICARE ==
[2019-08-14 13:12] LABS: HEMATOCRIT 34.1 % (36.0-47.0); HEMOGLOBIN 11.4 g/dl (12.0-15.5); MEAN CORPUSCULAR HEMOGLOBIN 31.4 pg (27.0-33.0); MEAN CORPUSCULAR HGB CONC 33.4 g/dl (32.0-36.5); MEAN CORPUSCULAR VOLUME 93.9 fl (80.0-96.0); PLATELET COUNT, AUTOMATED 152 10^3/uL (150-450); RED BLOOD COUNT 3.63 10^6/uL (4.00-5.40); WHITE BLOOD COUNT 5.6 10^3/uL (4.0-10.0)
[2019-08-14 13:26] LABS: CALCIUM LEVEL 8.8 MG/DL (8.8-10.2); CHOLESTEROL RISK RATIO 2.437 (<5); CREATININE FOR GFR 1.77 MG/DL (0.55-1.30); GLOMERULAR FILTRATION RATE 30.6 (>45); POTASSIUM SERUM 4.5 MEQ/L (3.5-5.1)
[2019-08-14 14:19] LABS: HEMOGLOBIN A1c 7.7 %
== END ==
LOC: M SFHCPLAZ 10:51
PROVIDERS: ATTEND Family Medicine
DX: E11.22 Type 2 diabetes mellitus with diabetic chronic kidney disease (principal); E78.2 Mixed hyperlipidemia; I10 Essential (primary) hypertension; Z86.2 Personal history of diseases of the blood and blood-forming organs and certain disorders involving the immune mechanism

== ENCOUNTER → 2020-02-01 | Outpatient (CLI) | payer MEDICARE ==
[~2020-02-01] MED LIST changes: -AMLO10TA5; +AMLO1TAB24 PO; +AMLO1TAB25; -AMLO5TAB6 PO; -ASPI81TA85 PO; +ASPI81TA86 PO; +NIFE15CA PO; -NIFE1TAB62 PO
[2020-02-01 14:03] LABS: HEMOGLOBIN A1c 7.7 %
[2020-02-01 14:14] LABS: CALCIUM LEVEL 8.9 MG/DL (8.8-10.2); CREATININE FOR GFR 2.23 MG/DL (0.55-1.30); GLOMERULAR FILTRATION RATE 23.3 (>45); POTASSIUM SERUM 4.6 MEQ/L (3.5-5.1)
== END ==
LOC: M PLALAB 10:05
PROVIDERS: ATTEND Family Medicine
DX: E11.9 Type 2 diabetes mellitus without complications (principal); N18.3 Chronic kidney disease, stage 3 (moderate)

== ENCOUNTER → 2020-04-12 | Outpatient (REF) | payer MEDICARE ==
[~2020-04-12] MED LIST changes: -ASPI-525 PO; +ASPI325T48 PO
== END ==
LOC: M SFHCPLAZ 17:50
PROVIDERS: ATTEND Family Medicine
DX: L72.3 Sebaceous cyst (principal)

== ENCOUNTER → 2020-07-18 | Outpatient (REF) | payer MEDICARE ==
[~2020-07-18] MED LIST changes: +HYDR-3490; -HYDR25TAB
[2020-07-18 13:14] LABS: APPEARANCE, URINE CLEAR (CLEAR); BACTERIA, URINE AUTO NEGATIVE (NEGATIVE); BILIRUBIN, URINE AUTO NEGATIVE (NEGATIVE); BLOOD, URINE BLOOD 1+ (NEGATIVE); COLOR, URINE STRAW (YELLOW); GLUCOSE, URINE (UA) AUTO 2+ mg/dL (NEGATIVE); KETONE, URINE AUTO NEGATIVE (NEGATIVE); LEUKOCYTE ESTERASE, URINE AUTO TRACE (NEGATIVE); NITRITE, URINE AUTO NEGATIVE (NEGATIVE); PROTEIN, URINE AUTO 2+ mg/dL (NEGATIVE); RBC, URINE AUTO 1 /HPF (0-3); SPECIFIC GRAVITY URINE AUTO 1.009 (1.002-1.035); SQUAMOUS EPITHELIAL CELL UR AU 0 /HPF (0-6); UROBILINOGEN, URINE AUTO 0.2 mg/dL (0.0-2.0); WBC, URINE AUTO 5 /HPF (0-3)
[2020-07-18 14:34] LABS: HEMOGLOBIN A1c 8.2 %
== END ==
LOC: M SFHCPLAZ 11:04
PROVIDERS: ATTEND Family Medicine
DX: E11.22 Type 2 diabetes mellitus with diabetic chronic kidney disease (principal); R10.2 Pelvic and perineal pain

== ENCOUNTER → 2020-07-18 | Outpatient (CLI) | payer MEDICARE ==
[2020-07-18 13:52] LABS: CHOLESTEROL RISK RATIO 2.68 (<5)
== END ==
LOC: M PLALAB 11:04
PROVIDERS: ATTEND Nurse Practitioner Family
DX: I25.10 Atherosclerotic heart disease of native coronary artery without angina pectoris (principal); E78.00 Pure hypercholesterolemia, unspecified

== ENCOUNTER → 2020-10-17 | Outpatient (REF) | payer MEDICARE ==
[2020-10-17 15:16] LABS: HEMOGLOBIN A1c 7.7 %
== END ==
LOC: M SFHCPLAZ 10:57
PROVIDERS: ATTEND Family Medicine
DX: E11.22 Type 2 diabetes mellitus with diabetic chronic kidney disease (principal)

== ENCOUNTER 2021-07-19 13:59 | Emergency (ER) | payer MEDICARE ==
[~2021-07-19] VITALS: Ht 167.6 cm; Wt 81.5 kg
[~2021-07-19 13:59] MED LIST changes: +LOSA100T45; -LOSA100T50
[2021-07-19 17:22] LABS: BASO % 0.3 % (0.0-1.0); EOS # 0.1 10^3/uL (0.0-0.5); EOS % 1.4 % (0.0-3.0); HEMATOCRIT 32.3 % (36.0-47.0); HEMOGLOBIN 11.2 g/dl (12.0-15.5); LYMPH # 1.4 10^3/uL (1.5-5.0); LYMPH % 22.7 % (24.0-44.0); MEAN CORPUSCULAR HEMOGLOBIN 32.1 pg (27.0-33.0); MEAN CORPUSCULAR HGB CONC 34.7 g/dl (32.0-36.5); MEAN CORPUSCULAR VOLUME 92.6 fl (80.0-96.0); MONO # 0.4 10^3/uL (0.0-0.8); MONO % 6.4 % (2.0-8.0); NEUTROPHILS # 4.3 10^3/uL (1.5-8.5); NEUTROPHILS % 68.7 % (36.0-66.0); PLATELET COUNT, AUTOMATED 126 10^3/uL (150-450); RED BLOOD COUNT 3.49 10^6/uL (4.00-5.40); WHITE BLOOD COUNT 6.3 10^3/uL (4.0-10.0)
[2021-07-19 17:45] LABS: ALBUMIN 3.3 GM/DL (3.2-5.2); BILIRUBIN,DIRECT 0.2 MG/DL (0.0-0.2); BILIRUBIN,TOTAL 0.4 MG/DL (0.2-1.0); TOTAL PROTEIN 7.6 GM/DL (6.4-8.2)
[2021-07-19 18:45] VITALS: BP 179/77
[2021-07-19] MEDS ORDERED: ALLO100T PO (18:54)
[2021-07-19] MEDS ORDERED: HYDR-3713 PO (18:54)
[2021-07-19] MEDS ORDERED: SYST0.4D2 OP (18:54)
[2021-07-19] MEDS ORDERED: OMEP-173 PO (18:54)
[2021-07-19] MEDS ORDERED: CALC1CAP31 PO (18:54)
[2021-07-19] MEDS ORDERED: CBD OIL INH (18:54)
[2021-07-19] MEDS ORDERED: LOSA25TA13 PO (18:54)
[2021-07-19] MEDS ORDERED: NS 1,000 ML IV ONE (19:25)
[2021-07-19 19:27] LABS: RSV AMPLIFICATION NEGATIVE (NEGATIVE)
== END 2021-07-19 22:55 | disposition home or self-care (01) ==
LOC: M ED 13:59
DX: R19.7 Diarrhea, unspecified (principal); E11.9 Type 2 diabetes mellitus without complications; N28.9 Disorder of kidney and ureter, unspecified; I25.10 Atherosclerotic heart disease of native coronary artery without angina pectoris; Z79.899 Other long term (current) drug therapy; Z79.84 Long term (current) use of oral hypoglycemic drugs; Z79.82 Long term (current) use of aspirin; Z88.1 Allergy status to other antibiotic agents; Z88.2 Allergy status to sulfonamides; Z88.5 Allergy status to narcotic agent; Z88.8 Allergy status to other drugs, medicaments and biological substances

== ENCOUNTER → 2021-07-20 | Outpatient (REF) | payer MEDICARE ==
[~2021-07-20] MED LIST changes: +ALLO100T PO; +CALC1CAP31 PO; +CBD OIL INH; +HYDR-3713 PO; +LOSA25TA13 PO; +OMEP-173 PO; +SYST0.4D2 OP
== END ==
LOC: M LAB REF 10:59
PROVIDERS: ATTEND Physician Assistant
DX: R19.7 Diarrhea, unspecified (principal)

== ENCOUNTER → 2021-07-27 | Outpatient (CLI) | payer MEDICARE ==
[2021-07-27 12:12] LABS: CREATININE FOR GFR 2.16 MG/DL (0.55-1.30); GLOMERULAR FILTRATION RATE 24.1 (>45); POTASSIUM SERUM 4.8 MEQ/L (3.5-5.1)
== END ==
LOC: M PLALAB 08:53
PROVIDERS: ATTEND Nurse Practitioner Family
DX: I50.9 Heart failure, unspecified (principal)

== ENCOUNTER → 2021-08-03 | Outpatient (CLI) | payer MEDICARE | LOC: M PLAIMG 12:53 | PROVIDERS: ATTEND Nurse Practitioner Family | DX: R06.00 Dyspnea, unspecified (principal) ==

== ENCOUNTER → 2021-08-17 | Outpatient (REF) | payer MEDICARE ==
[2021-08-17 17:29] LABS: CREATININE,RANDOM URINE 25.2 MG/DL; TOTAL PROTEIN,RANDOM URINE 85.9 MG/DL (0.0-12.0)
[2021-08-17 17:33] LABS: PERCENT SATURATION 25.2 % (13.2-45.0); TOTAL PROTEIN 7.3 GM/DL (6.4-8.2)
== END ==
LOC: M LAB REF 16:42
PROVIDERS: ATTEND Internal Medicine Nephrology
DX: N18.4 Chronic kidney disease, stage 4 (severe) (principal); E61.1 Iron deficiency; D63.1 Anemia in chronic kidney disease

== ENCOUNTER → 2021-09-08 | Outpatient (CLI) | payer MEDICARE ==
[2021-09-08 15:40] LABS: HEMOGLOBIN A1c 7.4 %
[2021-09-08 16:10] LABS: CALCIUM LEVEL 9.1 MG/DL (8.8-10.2); CHOLESTEROL RISK RATIO 2.625 (<5); CREATININE FOR GFR 2.34 MG/DL (0.55-1.30); GLOMERULAR FILTRATION RATE 21.9 (>45); MAGNESIUM LEVEL 2.1 MG/DL (1.8-2.4); POTASSIUM SERUM 4.7 MEQ/L (3.5-5.1)
== END ==
LOC: M PLALAB 14:25
PROVIDERS: ATTEND Family Medicine
DX: E11.22 Type 2 diabetes mellitus with diabetic chronic kidney disease (principal); R94.31 Abnormal electrocardiogram [ECG] [EKG]

== ENCOUNTER → 2021-11-14 | Outpatient (REF) | payer MEDICARE ==
[2021-11-14 20:44] LABS: CARBON DIOXIDE LEVEL 25 MEQ/L (21-32); CHLORIDE LEVEL 105 MEQ/L (98-107); FERRITIN 272 NG/ML (8-252); IRON (FE) 96 UG/DL (50-170); PERCENT SATURATION 31.9 % (13.2-45.0); POTASSIUM SERUM 4.3 MEQ/L (3.5-5.1); SODIUM LEVEL 135 MEQ/L (136-145); TOTAL IRON BINDING CAPACITY 301 UG/DL (250-450)
[2021-11-16 09:46] LABS: ALBUMIN 3.93 GM/DL (3.29-5.55); ALBUMIN % 49.8 % (55.8-66.1); ALPHA-1-GLOBULIN % 4.5 % (2.9-4.9); ALPHA-1-GLOBULINS 0.36 GM/DL (0.17-0.41); BETA-1-GLOBULINS % 6.4 % (4.7-7.2); BETA-2-GLOBULINS % 4.5 % (3.2-6.5); GAMMA GLOBULIN % 21.8 % (11.1-18.8)
[2021-11-16 09:47] LABS: ALPHA-2-GLOBULINS 1.03 GM/DL (0.42-0.99); BETA-1-GLOBULINS 0.51 GM/DL (0.28-0.60); BETA-2-GLOBULINS 0.36 GM/DL (0.19-0.55); GAMMA GLOBULINS 1.72 GM/DL (0.65-1.58); TOTAL PROTEIN 7.9 GM/DL (6.4-8.2)
[2021-11-16 09:48] LABS: ALBUMIN 3.93 GM/DL (3.29-5.55); ALBUMIN % 49.8 % (55.8-66.1); ALPHA-1-GLOBULIN % 4.5 % (2.9-4.9); ALPHA-1-GLOBULINS 0.36 GM/DL (0.17-0.41); ALPHA-2-GLOBULINS 1.03 GM/DL (0.42-0.99); BETA-1-GLOBULINS 0.51 GM/DL (0.28-0.60); BETA-1-GLOBULINS % 6.4 % (4.7-7.2); BETA-2-GLOBULINS 0.36 GM/DL (0.19-0.55); BETA-2-GLOBULINS % 4.5 % (3.2-6.5); GAMMA GLOBULIN % 21.8 % (11.1-18.8); TOTAL PROTEIN 7.9 GM/DL (6.4-8.2)
[2021-11-16 09:49] LABS: GAMMA GLOBULINS 1.72 GM/DL (0.65-1.58)
== END ==
LOC: M LAB REF 17:56
PROVIDERS: ATTEND Internal Medicine Nephrology
DX: N18.4 Chronic kidney disease, stage 4 (severe) (principal); E11.22 Type 2 diabetes mellitus with diabetic chronic kidney disease; E79.0 Hyperuricemia without signs of inflammatory arthritis and tophaceous disease

== ENCOUNTER → 2022-02-22 | Outpatient (CLI) | payer MEDICARE | LOC: M RAD 10:33 | PROVIDERS: ATTEND Physician Assistant | DX: Z12.2 Encounter for screening for malignant neoplasm of respiratory organs (principal); Z87.891 Personal history of nicotine dependence ==

== ENCOUNTER → 2022-02-27 | Outpatient (REF) | payer MEDICARE | LOC: M LAB REF 12:54 | PROVIDERS: ATTEND Physician Assistant | DX: R94.2 Abnormal results of pulmonary function studies (principal) ==

== ENCOUNTER → 2022-03-19 | Outpatient (REF) | payer MEDICARE ==
[2022-03-19 21:13] LABS: HEMOGLOBIN A1c 7.3 %
== END ==
LOC: M LAB REF 17:17
PROVIDERS: ATTEND Physician Assistant
DX: E11.22 Type 2 diabetes mellitus with diabetic chronic kidney disease (principal)

== ENCOUNTER → 2022-03-22 | Outpatient (CLI) | payer MEDICARE ==
[~2022-03-22] MED LIST changes: +METHACHOLINE KIT (J7674) INH ONE
== END ==
LOC: M CARPUL 10:42
PROVIDERS: ATTEND Physician Assistant
DX: R06.00 Dyspnea, unspecified (principal)
CPT/HCPCS: 94070; 95070; J7674

== ENCOUNTER 2022-05-07 08:57 | Emergency (ER) | payer MEDICARE ==
[~2022-05-07] VITALS: Ht 167.6 cm; Wt 79.5 kg
[~2022-05-07 08:57] MED LIST changes: -METHACHOLINE KIT (J7674) INH ONE
[2022-05-07 12:54] VITALS: BP 167/70
== END 2022-05-07 13:07 | disposition home or self-care (01) ==
LOC: M ED 08:57
DX: M79.604 Pain in right leg (principal); M71.21 Synovial cyst of popliteal space [Baker], right knee; E11.9 Type 2 diabetes mellitus without complications; I10 Essential (primary) hypertension; N18.4 Chronic kidney disease, stage 4 (severe); Z79.82 Long term (current) use of aspirin; Z79.4 Long term (current) use of insulin; Z79.899 Other long term (current) drug therapy; Z88.2 Allergy status to sulfonamides; Z88.5 Allergy status to narcotic agent; Z88.1 Allergy status to other antibiotic agents; Z88.8 Allergy status to other drugs, medicaments and biological substances

== ENCOUNTER 2022-07-26 21:22 | Inpatient (IN) | payer MEDICARE ==
[~2022-07-26] VITALS: Ht 167.6 cm; Wt 82.6 kg
[~2022-07-26 21:22] MED LIST changes: -SYST0.4D2 OP; +SYST0.4D2 OU
[2022-07-26] MEDS ORDERED: TORS20TA2 PO (21:32)
[2022-07-26] MEDS ORDERED: ASPI81TA26 PO (21:32)
[2022-07-26] MEDS ORDERED: ATOR1TAB21 PO (21:32)
[2022-07-26] MEDS ORDERED: FINE10TA PO (21:32)
[2022-07-27] MEDS ORDERED: ONDANSETRON 4MG 2ML VIAL As Ordered ONE (04:58)
[2022-07-27] MEDS ORDERED: NS 1,000 ML IV ONE ×2 (05:00→05:05)
[2022-07-27] MEDS ORDERED: ONDANSETRON 4MG 2ML VIAL IV ONE (05:05)
[2022-07-27 05:29] LABS: BASO % 0.2 % (0.0-1.0); HEMATOCRIT 27.3 % (36.0-47.0); HEMOGLOBIN 9.5 g/dl (12.0-15.5); LYMPH # 0.8 10^3/uL (1.5-5.0); MEAN CORPUSCULAR HEMOGLOBIN 32.8 pg (27.0-33.0); MEAN CORPUSCULAR HGB CONC 34.8 g/dl (32.0-36.5); MEAN CORPUSCULAR VOLUME 94.1 fl (80.0-96.0); MONO # 0.5 10^3/uL (0.0-0.8); MONO % 7.9 % (2.0-8.0); NEUTROPHILS # 4.4 10^3/uL (1.5-8.5); NEUTROPHILS % 76.8 % (36.0-66.0); PLATELET COUNT, AUTOMATED 112 10^3/uL (150-450); WHITE BLOOD COUNT 5.7 10^3/uL (4.0-10.0)
[2022-07-27 05:55] LABS: ALBUMIN 3.2 G/DL (3.2-5.2); BILIRUBIN,DIRECT 0.3 MG/DL (<0.4); BILIRUBIN,TOTAL 0.7 MG/DL (0.3-1.2); CALCIUM LEVEL 8.7 MG/DL (8.3-10.6); CREATININE FOR GFR 3.26 MG/DL (0.55-1.30); POTASSIUM SERUM 4.1 MMOL/L (3.5-5.1); TOTAL PROTEIN 7.2 G/DL (5.7-8.2)
[2022-07-27] MEDS ORDERED: PANTOPRAZOLE 40MG VIAL IV ONE (07:00)
[2022-07-27 07:43] LABS: VENOUS BASE EXCESS -6.2 (-2.0-2.0); VENOUS O2 SATURATION 97.4 % (60.0-80.0); VENOUS PARTIAL PRESSURE CO2 31.4 mmHg (38.0-50.0); VENOUS PARTIAL PRESSURE O2 101.2 mmHg (30.0-50.0); VENOUS PH 7.377 UNITS (7.330-7.430); VENOUS STANDARD HCO3 19.3 MEQ/L
[2022-07-27 08:04] LABS: APPEARANCE, URINE HAZY (CLEAR); BACTERIA, URINE AUTO NEGATIVE (NEGATIVE); BILIRUBIN, URINE AUTO NEGATIVE (NEGATIVE); BLOOD, URINE BLOOD 1+ (NEGATIVE); COLOR, URINE YELLOW (YELLOW); GLUCOSE, URINE (UA) AUTO 1+ mg/dL (NEGATIVE); KETONE, URINE AUTO NEGATIVE (NEGATIVE); LEUKOCYTE ESTERASE, URINE AUTO 1+ (NEGATIVE); MUCUS, URINE SMALL (NEGATIVE); NITRITE, URINE AUTO NEGATIVE (NEGATIVE); PROTEIN, URINE AUTO 3+ mg/dL (NEGATIVE); RBC, URINE AUTO 6 /HPF (0-3); SPECIFIC GRAVITY URINE AUTO 1.014 (1.002-1.035); SQUAMOUS EPITHELIAL CELL UR AU 0 /HPF (0-6); UROBILINOGEN, URINE AUTO 0.2 mg/dL (0.0-2.0); WBC, URINE AUTO 1 /HPF (0-3)
[2022-07-27] MEDS: NS 1,000 ML IV SCH ×2 (08:35→17:50)
[2022-07-27] MEDS: PANTOPRAZOLE 40MG VIAL IV SCH (09:25)
[2022-07-27 10:19] LABS: PARTIAL THROMBOPLASTIN TIME 27.3 SECONDS (24.8-34.2)
[2022-07-27 10:23] LABS: INR 0.99; PROTHROMBIN TIME 13.3 SECONDS (12.5-14.5)
[2022-07-27] MEDS ORDERED: MED REC COMMENT (11:52)
[2022-07-27] MEDS ORDERED: AMLO1TAB25 PO (11:52)
[2022-07-27] MEDS ORDERED: GLIP10TA18 PO (11:52)
[2022-07-27] MEDS ORDERED: ALBU8.5H INH (11:52)
[2022-07-27] MEDS ORDERED: HOME MED LIST COMPLETE! XX SCH (11:55)
[2022-07-27] MEDS ORDERED: DEXTROSE 50% 50ML SYRINGE IV PRN (12:10)
[2022-07-27] MEDS ORDERED: ENOXAPARIN 100MG/1ML SYRINGE (J1650 PER 10MG) SC SCH (12:10)
[2022-07-27] MEDS ORDERED: GLUCAGON INJ 1MG VIAL SC PRN (12:10)
[2022-07-27] MEDS ORDERED: GLUCOSE 4GM CHEW TABLET PO PRN (12:10)
[2022-07-27] MEDS: HEPARIN SOD (PORCINE) 5000UNITS/ML 1ML VIAL/SYRINGE SQ SCH ×2 (13:50→21:36)
[2022-07-27 16:45] VITALS: BP 169/34
[2022-07-27] MEDS: INSULIN LISPRO (NovoLOG) PER UNIT SC SCH ×2 (17:49→20:11)
[2022-07-27] MEDS: ONDANSETRON 4MG 2ML VIAL IV PRN (19:38)
[2022-07-27 19:39] VITALS: BP 176/70
[2022-07-27] MEDS: ACETAMINOPHEN TAB 650MG DOSE (2X325MG) PO PRN (20:49)
[2022-07-27] MEDS: CARVedilol 12.5 MG TAB PO SCH (20:51)
[2022-07-27] MEDS ORDERED: PROMETHAZINE 25MG/ML 1ML VIAL IV ONE (21:45)
[2022-07-27] MEDS ORDERED: PROMETHAZINE 25MG/ML 1ML VIAL IM ONE (22:00)
[2022-07-28 00:15] VITALS: BP 141/68
[2022-07-28] MEDS: NS 1,000 ML IV SCH (03:10)
[2022-07-28 05:13] VITALS: BP 144/64
[2022-07-28] MEDS: HEPARIN SOD (PORCINE) 5000UNITS/ML 1ML VIAL/SYRINGE SQ SCH ×3 (05:16→20:55)
[2022-07-28 06:00] LABS: HEMATOCRIT 24.4 % (36.0-47.0); HEMOGLOBIN 8.1 g/dl (12.0-15.5); MEAN CORPUSCULAR HGB CONC 33.2 g/dl (32.0-36.5); MEAN CORPUSCULAR VOLUME 96.4 fl (80.0-96.0); RED BLOOD COUNT 2.53 10^6/uL (4.00-5.40); WHITE BLOOD COUNT 3.6 10^3/uL (4.0-10.0)
[2022-07-28 06:27] LABS: PLATELET COUNT, AUTOMATED 95 10^3/uL (150-450)
[2022-07-28 06:32] LABS: ALBUMIN 2.4 G/DL (3.2-5.2); BILIRUBIN,TOTAL 0.4 MG/DL (0.3-1.2); CALCIUM LEVEL 7.8 MG/DL (8.3-10.6); CREATININE FOR GFR 2.76 MG/DL (0.55-1.30); GLOMERULAR FILTRATION RATE 18.1 (>45); POTASSIUM SERUM 3.9 MMOL/L (3.5-5.1); TOTAL PROTEIN 5.7 G/DL (5.7-8.2)
[2022-07-28] MEDS: NS 0.45% 1,000 ML IV SCH ×2 (09:01→18:38)
[2022-07-28] MEDS: INSULIN LISPRO (NovoLOG) PER UNIT SC SCH ×4 (09:30→20:56)
[2022-07-28] MEDS: CARVedilol 12.5 MG TAB PO SCH ×2 (09:33→21:15)
[2022-07-28] MEDS: PANTOPRAZOLE 40MG VIAL IV SCH (09:38)
[2022-07-28 14:00] VITALS: BP 145/59
[2022-07-28] MEDS: ACETAMINOPHEN TAB 650MG DOSE (2X325MG) PO PRN (17:47)
[2022-07-28] MEDS: ONDANSETRON 4MG 2ML VIAL IV PRN (18:42)
[2022-07-28 20:00] VITALS: BP 145/60
[2022-07-29 06:00] VITALS: BP 147/59
[2022-07-29] MEDS: HEPARIN SOD (PORCINE) 5000UNITS/ML 1ML VIAL/SYRINGE SQ SCH ×3 (06:00→20:51)
[2022-07-29 07:10] LABS: HEMATOCRIT 23.2 % (36.0-47.0); HEMOGLOBIN 7.7 g/dl (12.0-15.5); MEAN CORPUSCULAR HEMOGLOBIN 32.1 pg (27.0-33.0); MEAN CORPUSCULAR HGB CONC 33.2 g/dl (32.0-36.5); MEAN CORPUSCULAR VOLUME 96.7 fl (80.0-96.0); PLATELET COUNT, AUTOMATED 100 10^3/uL (150-450); WHITE BLOOD COUNT 3.2 10^3/uL (4.0-10.0)
[2022-07-29] MEDS: NS 0.45% 1,000 ML IV SCH (07:34)
[2022-07-29 07:35] LABS: ALBUMIN 2.3 G/DL (3.2-5.2); BILIRUBIN,TOTAL 0.3 MG/DL (0.3-1.2); CALCIUM LEVEL 7.3 MG/DL (8.3-10.6); CREATININE FOR GFR 2.14 MG/DL (0.55-1.30); GLOMERULAR FILTRATION RATE 24.3 (>45); POTASSIUM SERUM 3.9 MMOL/L (3.5-5.1); TOTAL PROTEIN 5.5 G/DL (5.7-8.2)
[2022-07-29] MEDS: ONDANSETRON 4MG 2ML VIAL IV PRN ×3 (08:04→17:48)
[2022-07-29] MEDS: PANTOPRAZOLE 40MG VIAL IV SCH (08:04)
[2022-07-29] MEDS: CARVedilol 12.5 MG TAB PO SCH ×2 (08:05→20:54)
[2022-07-29] MEDS: INSULIN LISPRO (NovoLOG) PER UNIT SC SCH ×4 (08:06→21:00)
[2022-07-29] MEDS: ACETAMINOPHEN TAB 650MG DOSE (2X325MG) PO PRN ×2 (08:16→20:56)
[2022-07-29 14:00] VITALS: BP 142/62
[2022-07-29 22:00] VITALS: BP 162/76
[2022-07-30] MEDS: ONDANSETRON 4MG 2ML VIAL IV PRN ×4 (04:33→21:54)
[2022-07-30] MEDS: HEPARIN SOD (PORCINE) 5000UNITS/ML 1ML VIAL/SYRINGE SQ SCH ×3 (04:53→21:54)
[2022-07-30 05:30] VITALS: BP 162/73
[2022-07-30 05:50] VITALS: BP 164/80
[2022-07-30] MEDS: CARVedilol 12.5 MG TAB PO SCH ×2 (06:15→21:46)
[2022-07-30 06:57] LABS: HEMATOCRIT 23.9 % (36.0-47.0); HEMOGLOBIN 8.1 g/dl (12.0-15.5); MEAN CORPUSCULAR HEMOGLOBIN 32.7 pg (27.0-33.0); MEAN CORPUSCULAR HGB CONC 33.9 g/dl (32.0-36.5); MEAN CORPUSCULAR VOLUME 96.4 fl (80.0-96.0); PLATELET COUNT, AUTOMATED 107 10^3/uL (150-450); RED BLOOD COUNT 2.48 10^6/uL (4.00-5.40); WHITE BLOOD COUNT 3.4 10^3/uL (4.0-10.0)
[2022-07-30 07:21] LABS: ALBUMIN 2.5 G/DL (3.2-5.2); BILIRUBIN,TOTAL 0.4 MG/DL (0.3-1.2); CALCIUM LEVEL 7.3 MG/DL (8.3-10.6); GLOMERULAR FILTRATION RATE 26.3 (>45); POTASSIUM SERUM 4.1 MMOL/L (3.5-5.1); TOTAL PROTEIN 5.9 G/DL (5.7-8.2)
[2022-07-30] MEDS: PANTOPRAZOLE 40MG VIAL IV SCH (08:13)
[2022-07-30] MEDS: INSULIN LISPRO (NovoLOG) PER UNIT SC SCH ×4 (08:14→21:00)
[2022-07-30 08:15] VITALS: BP 183/72
[2022-07-30 12:12] LABS: CK-MB VALUE MASS < 1.0 NG/ML (<3.6)
[2022-07-30 12:14] LABS: CPK CREATINE PHOSPHOKINASE 43 U/L (34-145); MB/CK RELATIVE INDEX 2.32 (< OR =4)
[2022-07-30 14:00] VITALS: BP 178/80
[2022-07-30] MEDS ORDERED: FUROSEMIDE 20MG/2ML VIAL IV ONE (15:40)
[2022-07-30 16:32] VITALS: BP 152/68
[2022-07-30] MEDS: ACETAMINOPHEN TAB 650MG DOSE (2X325MG) PO PRN (21:54)
[2022-07-30 22:00] VITALS: BP 179/77
[2022-07-31] MEDS: ACETAMINOPHEN TAB 650MG DOSE (2X325MG) PO PRN (05:57)
[2022-07-31] MEDS: ONDANSETRON 4MG 2ML VIAL IV PRN ×2 (05:57→12:35)
[2022-07-31 06:00] VITALS: BP 177/73
[2022-07-31] MEDS: HEPARIN SOD (PORCINE) 5000UNITS/ML 1ML VIAL/SYRINGE SQ SCH (06:00)
[2022-07-31 06:25] LABS: HEMATOCRIT 23.7 % (36.0-47.0); HEMOGLOBIN 7.8 g/dl (12.0-15.5); MEAN CORPUSCULAR HEMOGLOBIN 31.7 pg (27.0-33.0); MEAN CORPUSCULAR HGB CONC 32.9 g/dl (32.0-36.5); MEAN CORPUSCULAR VOLUME 96.3 fl (80.0-96.0); PLATELET COUNT, AUTOMATED 107 10^3/uL (150-450); RED BLOOD COUNT 2.46 10^6/uL (4.00-5.40); WHITE BLOOD COUNT 3.7 10^3/uL (4.0-10.0)
[2022-07-31 06:45] VITALS: BP 188/70
[2022-07-31 06:55] LABS: ALBUMIN 2.4 G/DL (3.2-5.2); BILIRUBIN,TOTAL 0.5 MG/DL (0.3-1.2); CALCIUM LEVEL 7.8 MG/DL (8.3-10.6); CREATININE FOR GFR 2.06 MG/DL (0.55-1.30); GLOMERULAR FILTRATION RATE 25.4 (>45); POTASSIUM SERUM 3.9 MMOL/L (3.5-5.1); TOTAL PROTEIN 5.7 G/DL (5.7-8.2)
[2022-07-31] MEDS ORDERED: **hydrALAZINE HCL** 25 MG TAB PO ONE (06:55)
[2022-07-31] MEDS ORDERED: PILL CUTTER 1 EACH XX PRN (07:00)
[2022-07-31] MEDS ORDERED: allopurinoL 100 MG TAB PO SCH (09:00)
[2022-07-31] MEDS ORDERED: LOSARTAN 25 MG TAB PO SCH (09:00)
[2022-07-31] MEDS ORDERED: ASPIRIN 81MG ENTERIC TABLET PO SCH (09:00)
[2022-07-31] MEDS: PANTOPRAZOLE 40MG VIAL IV SCH (09:40)
[2022-07-31] MEDS: INSULIN LISPRO (NovoLOG) PER UNIT SC SCH ×2 (09:41→12:35)
[2022-07-31 09:42] VITALS: BP 172/71
[2022-07-31] MEDS: CARVedilol 12.5 MG TAB PO SCH (09:42)
[2022-07-31] MEDS ORDERED: TORS20TA2 PO (10:58)
[2022-07-31] MEDS ORDERED: AMOX875T2 PO (11:50)
[2022-07-31] MEDS ORDERED: ONDA4TAB6 PO (12:21)
[2022-07-31] MEDS ORDERED: FLUT15.819 NARES (12:21)
[2022-07-31] MEDS ORDERED: ATORVASTATIN 20 MG TAB PO SCH (21:00)
[2022-08-01] MEDS ORDERED: CALCITRIOL 0.25 MCG CAP (S0169) PO SCH (09:00)
== END 2022-07-31 14:17 | disposition home or self-care (01) | DRG 178 ==
LOC: M ED 21:22 → M ED INP 07-27 08:47 → M MSPAV 07-27 16:47
PROVIDERS: ADMIT Internal Medicine; ATTEND Student in an Organized Health Care Education/Training Program
DX: U07.1 COVID-19 (principal); N17.9 Acute kidney failure, unspecified; N18.4 Chronic kidney disease, stage 4 (severe); I13.0 Hypertensive heart and chronic kidney disease with heart failure and stage 1 through stage 4 chronic kidney disease, or unspecified chronic kidney disease; I25.10 Atherosclerotic heart disease of native coronary artery without angina pectoris; M10.9 Gout, unspecified; E78.5 Hyperlipidemia, unspecified; E11.22 Type 2 diabetes mellitus with diabetic chronic kidney disease; R11.2 Nausea with vomiting, unspecified; I50.9 Heart failure, unspecified; E86.0 Dehydration; R74.01 Elevation of levels of liver transaminase levels; D64.9 Anemia, unspecified; J32.9 Chronic sinusitis, unspecified; Z95.1 Presence of aortocoronary bypass graft; Z90.49 Acquired absence of other specified parts of digestive tract; Z87.891 Personal history of nicotine dependence; Z79.84 Long term (current) use of oral hypoglycemic drugs; Z79.82 Long term (current) use of aspirin; Z79.899 Other long term (current) drug therapy; Z88.1 Allergy status to other antibiotic agents; Z88.2 Allergy status to sulfonamides; Z88.5 Allergy status to narcotic agent; Z88.8 Allergy status to other drugs, medicaments and biological substances; R53.1 Weakness

== ENCOUNTER → 2022-08-13 | Outpatient (REF) | payer MEDICARE ==
[~2022-08-13] MED LIST changes: +ALBU8.5H INH; +AMLO1TAB25 PO; +AMOX875T2 PO; +ASPI81TA26 PO; +ATOR1TAB21 PO; +FINE10TA PO; +FLUT15.819 NARES; +GLIP10TA18 PO; +MED REC COMMENT; +ONDA4TAB6 PO
[2022-08-14 11:02] LABS: APPEARANCE, URINE HAZY (CLEAR); BACTERIA, URINE AUTO 1+ (NEGATIVE); BILIRUBIN, URINE AUTO NEGATIVE (NEGATIVE); BLOOD, URINE BLOOD 2+ (NEGATIVE); COLOR, URINE YELLOW (YELLOW); GLUCOSE, URINE (UA) AUTO 1+ mg/dL (NEGATIVE); KETONE, URINE AUTO NEGATIVE (NEGATIVE); LEUKOCYTE ESTERASE, URINE AUTO 2+ (NEGATIVE); NITRITE, URINE AUTO NEGATIVE (NEGATIVE); PROTEIN, URINE AUTO 3+ mg/dL (NEGATIVE); RBC, URINE AUTO 4 /HPF (0-3); SPECIFIC GRAVITY URINE AUTO 1.009 (1.002-1.035); SQUAMOUS EPITHELIAL CELL UR AU 1 /HPF (0-6); UROBILINOGEN, URINE AUTO 0.2 mg/dL (0.0-2.0); WBC, URINE AUTO 117 /HPF (0-3)
== END ==
LOC: M SFHCPLAZ 10:17
PROVIDERS: ATTEND Nurse Practitioner Family
DX: N39.0 Urinary tract infection, site not specified (principal)

== ENCOUNTER → 2022-09-06 | Outpatient (CLI) | payer MEDICARE ==
[~2022-09-06] VITALS: Ht 165.1 cm; Wt 79.2 kg
[~2022-09-06] MED LIST changes: +FLUT1BLS6 INH; -LOSA100T45; +LOSA100T46; +LOSA50TA28 PO; +POTA-298 PO; -POTA1TAB14 PO
[2022-09-06 14:26] VITALS: BP 115/63
== END ==
LOC: M PAL 14:18
PROVIDERS: ATTEND Nurse Practitioner Adult Health
DX: M79.2 Neuralgia and neuritis, unspecified (principal); R07.89 Other chest pain; M25.512 Pain in left shoulder; M25.561 Pain in right knee; G89.29 Other chronic pain; Z79.891 Long term (current) use of opiate analgesic; Z51.5 Encounter for palliative care; U09.9 Post COVID-19 condition, unspecified; R19.7 Diarrhea, unspecified; R43.8 Other disturbances of smell and taste; N18.9 Chronic kidney disease, unspecified; I51.9 Heart disease, unspecified; Z79.51 Long term (current) use of inhaled steroids; Z79.82 Long term (current) use of aspirin; Z79.84 Long term (current) use of oral hypoglycemic drugs; Z79.899 Other long term (current) drug therapy; Z87.891 Personal history of nicotine dependence; Z88.1 Allergy status to other antibiotic agents; Z88.2 Allergy status to sulfonamides; Z88.5 Allergy status to narcotic agent; Z88.8 Allergy status to other drugs, medicaments and biological substances; Z95.1 Presence of aortocoronary bypass graft; Z90.49 Acquired absence of other specified parts of digestive tract; Z90.710 Acquired absence of both cervix and uterus

== ENCOUNTER → 2022-12-05 | Outpatient (REF) | payer MEDICARE ==
[2022-12-05 18:36] LABS: FERRITIN 227.7 NG/ML (7.3-270.7)
== END ==
LOC: M LAB REF 17:05
PROVIDERS: ATTEND Internal Medicine Nephrology
DX: N18.9 Chronic kidney disease, unspecified (principal); D63.1 Anemia in chronic kidney disease

== ENCOUNTER → 2022-12-18 | Outpatient (REF) | payer MEDICARE ==
[2022-12-18 12:06] LABS: BASO % 0.5 % (0.0-1.0); EOS # 0.1 10^3/uL (0.0-0.5); EOS % 2.7 % (0.0-3.0); HEMATOCRIT 31.5 % (36.0-47.0); HEMOGLOBIN 10.4 g/dl (12.0-15.5); LYMPH # 1.2 10^3/uL (1.5-5.0); LYMPH % 26.3 % (24.0-44.0); MEAN CORPUSCULAR HEMOGLOBIN 32.5 pg (27.0-33.0); MEAN CORPUSCULAR VOLUME 98.4 fl (80.0-96.0); MONO # 0.4 10^3/uL (0.0-0.8); MONO % 8.2 % (2.0-8.0); NEUTROPHILS # 2.7 10^3/uL (1.5-8.5); NEUTROPHILS % 61.6 % (36.0-66.0); PLATELET COUNT, AUTOMATED 103 10^3/uL (150-450); WHITE BLOOD COUNT 4.4 10^3/uL (4.0-10.0)
[2022-12-18 12:24] LABS: HEMOGLOBIN A1c 8.1 % (4.0-6.0)
[2022-12-18 12:33] LABS: FERRITIN 210.3 NG/ML (7.3-270.7)
[2022-12-18 12:34] LABS: BILIRUBIN,TOTAL 0.4 MG/DL (0.3-1.2); CALCIUM LEVEL 8.7 MG/DL (8.3-10.6); CHOLESTEROL RISK RATIO 3.2 (<5); CREATININE FOR GFR 3.05 MG/DL (0.55-1.30); GLOMERULAR FILTRATION RATE 16.1 (>39); LDL CHOLESTEROL 24.6 MG/DL (<100); PERCENT SATURATION 25.5 % (13.2-45.0); POTASSIUM SERUM 3.9 MMOL/L (3.5-5.1); THYROID STIMULATING HORMONE 0.602 uIU/ML (0.55-4.78); TOTAL PROTEIN 7.3 G/DL (5.7-8.2)
[2022-12-18 12:52] LABS: MAU/CREAT RATIO 1095.6 MCG/MG (0.0-30.0)
== END ==
LOC: M SFHCCLAY 08:37
PROVIDERS: ATTEND Nurse Practitioner Family
DX: I12.9 Hypertensive chronic kidney disease with stage 1 through stage 4 chronic kidney disease, or unspecified chronic kidney disease (principal); N18.4 Chronic kidney disease, stage 4 (severe); E11.22 Type 2 diabetes mellitus with diabetic chronic kidney disease; G89.4 Chronic pain syndrome; B18.2 Chronic viral hepatitis C; K21.9 Gastro-esophageal reflux disease without esophagitis; K58.0 Irritable bowel syndrome with diarrhea; I25.10 Atherosclerotic heart disease of native coronary artery without angina pectoris; F17.211 Nicotine dependence, cigarettes, in remission; E78.2 Mixed hyperlipidemia; Z86.2 Personal history of diseases of the blood and blood-forming organs and certain disorders involving the immune mechanism

== ENCOUNTER → 2023-02-18 | Outpatient (CLI) | payer MEDICARE ==
[2023-02-18 17:05] LABS: ALBUMIN 3.3 G/DL (3.2-5.2); ALKALINE PHOSPHATASE 142 U/L (46-116); ALT/SGPT 77 U/L (7.0-40); AST/SGOT 63 U/L (<34); BILIRUBIN,DIRECT 0.2 MG/DL (<0.4); BILIRUBIN,TOTAL 0.3 MG/DL (0.3-1.2); TOTAL PROTEIN 7.6 G/DL (5.7-8.2)
[2023-02-18 17:08] LABS: HEPATITIS B SURFACE ANTIBODY NEGATIVE (POSITIVE)
[2023-02-18 17:40] LABS: HEPATITIS C VIRUS ABY INDEX > 11.00 INDEX (<0.8)
[2023-02-22 16:10] LABS: AFP TUMOR L3% 7.6 % (0.0-9.9); AFP TUMOR TOTAL 6.5 ng/mL (0.0-9.2); HEPATITIS C QUANTITATION 5160000 IU/mL (.)
== END ==
LOC: M PLALAB 12:52
PROVIDERS: ATTEND Internal Medicine Infectious Disease
DX: B18.2 Chronic viral hepatitis C (principal)

== ENCOUNTER → 2023-02-28 | Outpatient (CLI) | payer MEDICARE | LOC: M RAD 06:25 | PROVIDERS: ATTEND Internal Medicine Infectious Disease | DX: B18.2 Chronic viral hepatitis C (principal); K76.0 Fatty (change of) liver, not elsewhere classified ==

== ENCOUNTER → 2023-03-07 | Outpatient (CLI) | payer MEDICARE | LOC: M RAD 13:43 | PROVIDERS: ATTEND Internal Medicine Pulmonary Disease | DX: Z87.891 Personal history of nicotine dependence (principal) ==

== ENCOUNTER → 2023-03-26 | Outpatient (REF) | payer MEDICARE | LOC: M SFHCCLAY 08:16 | PROVIDERS: ATTEND Physician Assistant | DX: R30.0 Dysuria (principal) ==

== ENCOUNTER → 2023-04-15 | Outpatient (REF) | payer MEDICARE | LOC: M SFHCCLAY 09:06 | PROVIDERS: ATTEND Nurse Practitioner Family | DX: R30.0 Dysuria (principal) ==

== ENCOUNTER → 2023-05-10 | Outpatient (REF) | payer MEDICARE | LOC: M SFHCCLAY 14:24 | PROVIDERS: ATTEND Physician Assistant | DX: N39.0 Urinary tract infection, site not specified (principal) ==

== ENCOUNTER → 2023-06-04 | Outpatient (REF) | payer MEDICARE ==
[2023-06-04 17:43] LABS: BASO % 0.6 % (0.0-1.0); EOS # 0.2 10^3/uL (0.0-0.5); EOS % 3.6 % (0.0-3.0); HEMATOCRIT 28.5 % (36.0-47.0); HEMOGLOBIN 9.6 g/dl (12.0-15.5); LYMPH # 0.7 10^3/uL (1.5-5.0); MEAN CORPUSCULAR HEMOGLOBIN 32.8 pg (27.0-33.0); MEAN CORPUSCULAR HGB CONC 33.7 g/dl (32.0-36.5); MEAN CORPUSCULAR VOLUME 97.3 fl (80.0-96.0); MONO # 0.3 10^3/uL (0.0-0.8); MONO % 7.2 % (2.0-8.0); NEUTROPHILS # 3.5 10^3/uL (1.5-8.5); NEUTROPHILS % 74.2 % (36.0-66.0); PLATELET COUNT, AUTOMATED 122 10^3/uL (150-450); RED BLOOD COUNT 2.93 10^6/uL (4.00-5.40); WHITE BLOOD COUNT 4.7 10^3/uL (4.0-10.0)
[2023-06-04 18:10] LABS: HEMOGLOBIN A1c 6.8 % (4.0-6.0)
[2023-06-04 18:11] LABS: FERRITIN 101.6 NG/ML (7.3-270.7)
[2023-06-04 18:12] LABS: ALBUMIN 3.4 G/DL (3.2-5.2); BILIRUBIN,TOTAL 0.4 MG/DL (0.3-1.2); CALCIUM LEVEL 8.9 MG/DL (8.3-10.6); CHOLESTEROL RISK RATIO 3.18 (<5); CREATININE FOR GFR 3.17 MG/DL (0.55-1.30); GLOMERULAR FILTRATION RATE 15.4 (>39); HDL CHOLESTEROL 45.5 MG/DL (>40); LDL CHOLESTEROL 58.7 MG/DL (<100); NON-HDL-C 99.5 MG/DL; PERCENT SATURATION 25.8 % (13.2-45.0); POTASSIUM SERUM 4.5 MMOL/L (3.5-5.1); TOTAL PROTEIN 7.8 G/DL (5.7-8.2)
== END ==
LOC: M SFHCCLAY 11:48
PROVIDERS: ATTEND Nurse Practitioner Family
DX: N30.00 Acute cystitis without hematuria (principal); K74.60 Unspecified cirrhosis of liver; D69.6 Thrombocytopenia, unspecified; N18.4 Chronic kidney disease, stage 4 (severe); Z86.2 Personal history of diseases of the blood and blood-forming organs and certain disorders involving the immune mechanism; E78.2 Mixed hyperlipidemia; I25.10 Atherosclerotic heart disease of native coronary artery without angina pectoris; E11.22 Type 2 diabetes mellitus with diabetic chronic kidney disease

== ENCOUNTER → 2023-07-02 | Outpatient (CLI) | payer MEDICARE ==
[2023-07-02 15:45] LABS: BASO % 0.5 % (0.0-1.0); EOS # 0.2 10^3/uL (0.0-0.5); EOS % 3.5 % (0.0-3.0); HEMATOCRIT 27.6 % (36.0-47.0); HEMOGLOBIN 9.3 g/dl (12.0-15.5); LYMPH # 0.6 10^3/uL (1.5-5.0); LYMPH % 14.4 % (24.0-44.0); MEAN CORPUSCULAR HEMOGLOBIN 32.1 pg (27.0-33.0); MEAN CORPUSCULAR HGB CONC 33.7 g/dl (32.0-36.5); MEAN CORPUSCULAR VOLUME 95.2 fl (80.0-96.0); MONO # 0.3 10^3/uL (0.0-0.8); MONO % 6.1 % (2.0-8.0); NEUTROPHILS # 3.2 10^3/uL (1.5-8.5); PLATELET COUNT, AUTOMATED 114 10^3/uL (150-450); WHITE BLOOD COUNT 4.2 10^3/uL (4.0-10.0)
[2023-07-02 15:49] LABS: ALBUMIN 3.2 G/DL (3.2-5.2); BILIRUBIN,TOTAL 0.3 MG/DL (0.3-1.2); CALCIUM LEVEL 8.7 MG/DL (8.3-10.6); CREATININE FOR GFR 3.2 MG/DL (0.55-1.30); GLOMERULAR FILTRATION RATE 15.2 (>39); POTASSIUM SERUM 4.5 MMOL/L (3.5-5.1); TOTAL PROTEIN 7.6 G/DL (5.7-8.2)
[2023-07-04 15:08] LABS: HEPATITIS C QUANTITATION HCV Not Detected IU/mL (.)
== END ==
LOC: M PLALAB 12:09
PROVIDERS: ATTEND Internal Medicine Infectious Disease
DX: B18.2 Chronic viral hepatitis C (principal)

== ENCOUNTER → 2023-07-05 | Outpatient (REF) | payer MEDICARE ==
[2023-07-05 18:21] LABS: PERCENT SATURATION 20.9 % (13.2-45.0)
[2023-07-05 18:24] LABS: FERRITIN 109.9 NG/ML (7.3-270.7)
[2023-07-05 19:21] LABS: FOLATE 15.1 NG/ML (>5.4)
== END ==
LOC: M LAB REF 16:58
PROVIDERS: ATTEND Internal Medicine Nephrology
DX: E61.1 Iron deficiency (principal)

== ENCOUNTER → 2023-08-12 | Outpatient (REF) | payer MEDICARE | LOC: M SFHCCLAY 09:12 | PROVIDERS: ATTEND Nurse Practitioner Family | DX: B18.2 Chronic viral hepatitis C (principal); D69.6 Thrombocytopenia, unspecified; K21.9 Gastro-esophageal reflux disease without esophagitis; N18.4 Chronic kidney disease, stage 4 (severe); K74.60 Unspecified cirrhosis of liver; I25.10 Atherosclerotic heart disease of native coronary artery without angina pectoris; E11.22 Type 2 diabetes mellitus with diabetic chronic kidney disease ==

== ENCOUNTER → 2023-08-13 | Outpatient (REF) | payer MEDICARE ==
[2023-08-13 12:43] LABS: BASO % 0.7 % (0.0-1.0); EOS # 0.1 10^3/uL (0.0-0.5); EOS % 3.4 % (0.0-3.0); HEMATOCRIT 26.4 % (36.0-47.0); HEMOGLOBIN 9.1 g/dl (12.0-15.5); LYMPH # 0.8 10^3/uL (1.5-5.0); LYMPH % 20.3 % (24.0-44.0); MEAN CORPUSCULAR HEMOGLOBIN 33.2 pg (27.0-33.0); MEAN CORPUSCULAR HGB CONC 34.5 g/dl (32.0-36.5); MEAN CORPUSCULAR VOLUME 96.4 fl (80.0-96.0); MONO # 0.3 10^3/uL (0.0-0.8); MONO % 7.5 % (2.0-8.0); NEUTROPHILS # 2.8 10^3/uL (1.5-8.5); NEUTROPHILS % 67.4 % (36.0-66.0); PLATELET COUNT, AUTOMATED 143 10^3/uL (150-450); RED BLOOD COUNT 2.74 10^6/uL (4.00-5.40); WHITE BLOOD COUNT 4.1 10^3/uL (4.0-10.0)
[2023-08-13 13:10] LABS: HEMOGLOBIN A1c 6.1 % (4.0-6.0)
[2023-08-13 13:14] LABS: ALBUMIN 3.3 G/DL (3.2-5.2); BILIRUBIN,TOTAL 0.3 MG/DL (0.3-1.2); CALCIUM LEVEL 8.6 MG/DL (8.3-10.6); CHOLESTEROL RISK RATIO 3.8 (<5); CREATININE FOR GFR 3.13 MG/DL (0.55-1.30); GLOMERULAR FILTRATION RATE 15.6 (>39); HDL CHOLESTEROL 32.3 MG/DL (>40); LDL CHOLESTEROL 41.5 MG/DL (<100); NON-HDL-C 90.7 MG/DL; POTASSIUM SERUM 4.1 MMOL/L (3.5-5.1); TOTAL PROTEIN 7.4 G/DL (5.7-8.2)
== END ==
LOC: M SFHCCLAY 07:08
PROVIDERS: ATTEND Nurse Practitioner Family
DX: B18.2 Chronic viral hepatitis C (principal); D69.6 Thrombocytopenia, unspecified; K21.9 Gastro-esophageal reflux disease without esophagitis; N18.4 Chronic kidney disease, stage 4 (severe); K74.60 Unspecified cirrhosis of liver; I25.10 Atherosclerotic heart disease of native coronary artery without angina pectoris; E11.22 Type 2 diabetes mellitus with diabetic chronic kidney disease

== ENCOUNTER → 2023-09-05 | Outpatient (CLI) | payer MEDICARE ==
[~2023-09-05] VITALS: Ht 167.6 cm; Wt 77.9 kg
[~2023-09-05] MED LIST changes: +JARD1TAB PO
[2023-09-05 11:34] VITALS: BP 150/75; O2SAT 100
== END ==
LOC: M PAL 11:16
PROVIDERS: ATTEND Nurse Practitioner Adult Health
DX: M79.2 Neuralgia and neuritis, unspecified (principal); G89.29 Other chronic pain; R07.89 Other chest pain; M25.512 Pain in left shoulder; M25.511 Pain in right shoulder; M25.561 Pain in right knee; Z51.5 Encounter for palliative care; Z86.16 Personal history of COVID-19; N18.30 Chronic kidney disease, stage 3 unspecified; I51.9 Heart disease, unspecified; Z79.82 Long term (current) use of aspirin; Z79.84 Long term (current) use of oral hypoglycemic drugs; Z79.891 Long term (current) use of opiate analgesic; Z79.899 Other long term (current) drug therapy; Z87.891 Personal history of nicotine dependence; Z88.1 Allergy status to other antibiotic agents; Z88.2 Allergy status to sulfonamides; Z88.5 Allergy status to narcotic agent; Z88.8 Allergy status to other drugs, medicaments and biological substances; Z95.1 Presence of aortocoronary bypass graft; Z90.49 Acquired absence of other specified parts of digestive tract; Z90.710 Acquired absence of both cervix and uterus

== ENCOUNTER → 2023-10-09 | Outpatient (REF) | payer MEDICARE ==
[~2023-10-09] MED LIST changes: +ONDA-282 PO; -ONDA4TAB6 PO
[2023-10-09 13:44] LABS: BASO # 0.1 10^3/uL (0.0-0.2); BASO % 0.9 % (0.0-1.0); EOS # 0.2 10^3/uL (0.0-0.5); EOS % 3.2 % (0.0-3.0); HEMATOCRIT 29.3 % (36.0-47.0); HEMOGLOBIN 10.1 g/dl (12.0-15.5); LYMPH % 17.9 % (24.0-44.0); MEAN CORPUSCULAR HEMOGLOBIN 32.6 pg (27.0-33.0); MEAN CORPUSCULAR HGB CONC 34.5 g/dl (32.0-36.5); MEAN CORPUSCULAR VOLUME 94.5 fl (80.0-96.0); MONO # 0.4 10^3/uL (0.0-0.8); MONO % 6.9 % (2.0-8.0); NEUTROPHILS # 3.8 10^3/uL (1.5-8.5); NEUTROPHILS % 70.7 % (36.0-66.0); PLATELET COUNT, AUTOMATED 138 10^3/uL (150-450); WHITE BLOOD COUNT 5.4 10^3/uL (4.0-10.0)
[2023-10-09 14:12] LABS: ALBUMIN 3.4 G/DL (3.2-5.2); BILIRUBIN,TOTAL 0.3 MG/DL (0.3-1.2); CREATININE FOR GFR 3.63 MG/DL (0.55-1.30); GLOMERULAR FILTRATION RATE 13.1 (>39); POTASSIUM SERUM 4.2 MMOL/L (3.5-5.1); TOTAL PROTEIN 7.6 G/DL (5.7-8.2)
[2023-10-10 15:09] LABS: HEPATITIS C QUANTITATION HCV Not Detected IU/mL (.)
== END ==
LOC: M SFHCCLAY 08:50
PROVIDERS: ATTEND Internal Medicine Infectious Disease
DX: B18.2 Chronic viral hepatitis C (principal)

== ENCOUNTER 2023-10-31 08:04 | Outpatient (CLI) | payer MEDICARE ==
[~2023-10-31 08:04] MED LIST changes: +ALBUTEROL SULFATE 2.5MG/0.5ML INH NEB SOLN INH PRN; +EPINEPHrine INJ 1 MG/ML 1ML AMP IM PRN; +NS 1,000 ML IV SCH; +diphenhydrAMINE 50MG/ML VIAL IV PRN; +methylPREDNISolone 125MG 2ML VIAL IV PRN
[2023-10-31 08:30] VITALS: BP 168/75; O2SAT 98
[2023-10-31] MEDS: IRON SUCROSE 300 MG in NS 250 ML OVER 90 MIN. IV ONE (08:56)
[2023-10-31 10:50] VITALS: BP 160/70; O2SAT 100
== END 2023-10-31 10:50 | disposition home or self-care (01) ==
LOC: M INFU 08:04
PROVIDERS: ATTEND Internal Medicine Nephrology
DX: E61.1 Iron deficiency (principal); Z88.2 Allergy status to sulfonamides; Z88.5 Allergy status to narcotic agent; Z88.1 Allergy status to other antibiotic agents; Z88.8 Allergy status to other drugs, medicaments and biological substances
CPT/HCPCS: 96365; 96366; J1756

== ENCOUNTER → 2023-10-31 | Outpatient (CLI) | payer MEDICARE | LOC: M RAD 07:58 | PROVIDERS: ATTEND Internal Medicine Infectious Disease | DX: B18.2 Chronic viral hepatitis C (principal); K74.60 Unspecified cirrhosis of liver; R16.0 Hepatomegaly, not elsewhere classified ==

== ENCOUNTER 2023-11-14 08:00 | Outpatient (CLI) | payer MEDICARE ==
[~2023-11-14] VITALS: Ht 165.1 cm; Wt 77.3 kg
[2023-11-14 08:05] VITALS: BP 170/74; O2SAT 98
[2023-11-14] MEDS: IRON SUCROSE 300 MG in NS 185 ML IV ONE (08:32)
[2023-11-14 09:40] VITALS: BP 150/70; O2SAT 100
== END 2023-11-14 09:45 ==
LOC: M INFU 08:00
PROVIDERS: ATTEND Internal Medicine Nephrology
DX: E61.1 Iron deficiency (principal); Z88.2 Allergy status to sulfonamides; Z88.5 Allergy status to narcotic agent; Z88.1 Allergy status to other antibiotic agents; Z88.8 Allergy status to other drugs, medicaments and biological substances
CPT/HCPCS: 96365; J1756

== ENCOUNTER 2023-11-28 12:20 | Outpatient (CLI) | payer MEDICARE ==
[~2023-11-28] VITALS: Ht 167.6 cm; Wt 77.2 kg
[2023-11-28 12:20] VITALS: BP 148/70; O2SAT 99
[2023-11-28] MEDS: IRON SUCROSE 300 MG in NS 185 ML IV ONE (12:54)
[2023-11-28] MEDS ORDERED: LANTINJ4 SC (13:00)
[2023-11-28 14:14] VITALS: BP 160/70; O2SAT 100
== END 2023-11-28 14:15 ==
LOC: M INFU 12:20
PROVIDERS: ATTEND Internal Medicine Nephrology
DX: E61.1 Iron deficiency (principal); Z88.2 Allergy status to sulfonamides; Z88.5 Allergy status to narcotic agent; Z88.1 Allergy status to other antibiotic agents; Z88.8 Allergy status to other drugs, medicaments and biological substances
CPT/HCPCS: 96365; J1756

== ENCOUNTER → 2023-12-06 | Outpatient (REF) | payer MEDICARE ==
[~2023-12-06] MED LIST changes: -ALBUTEROL SULFATE 2.5MG/0.5ML INH NEB SOLN INH PRN; -EPINEPHrine INJ 1 MG/ML 1ML AMP IM PRN; +LANTINJ4 SC; -NS 1,000 ML IV SCH; -diphenhydrAMINE 50MG/ML VIAL IV PRN; -methylPREDNISolone 125MG 2ML VIAL IV PRN
[2023-12-06 18:06] LABS: HEMOGLOBIN A1c 6.4 % (4.0-6.0)
== END ==
LOC: M LAB REF 17:10
PROVIDERS: ATTEND Nurse Practitioner Family
DX: E11.22 Type 2 diabetes mellitus with diabetic chronic kidney disease (principal)

== ENCOUNTER → 2023-12-13 | Outpatient (REF) | payer MEDICARE ==
[2023-12-13 17:57] LABS: FERRITIN 369.3 NG/ML (7.3-270.7)
[2023-12-13 18:01] LABS: BASO % 0.6 % (0.0-1.0); EOS # 0.1 10^3/uL (0.0-0.5); EOS % 2.4 % (0.0-3.0); HEMATOCRIT 28.1 % (36.0-47.0); HEMOGLOBIN 9.4 g/dl (12.0-15.5); LYMPH # 1.1 10^3/uL (1.5-5.0); LYMPH % 20.3 % (24.0-44.0); MEAN CORPUSCULAR HEMOGLOBIN 32.8 pg (27.0-33.0); MEAN CORPUSCULAR HGB CONC 33.5 g/dl (32.0-36.5); MEAN CORPUSCULAR VOLUME 97.9 fl (80.0-96.0); MONO # 0.4 10^3/uL (0.0-0.8); MONO % 7.5 % (2.0-8.0); NEUTROPHILS # 3.7 10^3/uL (1.5-8.5); PLATELET COUNT, AUTOMATED 128 10^3/uL (150-450); RED BLOOD COUNT 2.87 10^6/uL (4.00-5.40); WHITE BLOOD COUNT 5.3 10^3/uL (4.0-10.0)
== END ==
LOC: M SFHCCLAY 14:05
PROVIDERS: ATTEND Nurse Practitioner Family
DX: Z86.2 Personal history of diseases of the blood and blood-forming organs and certain disorders involving the immune mechanism (principal)

== ENCOUNTER → 2023-12-19 | Outpatient (REF) | payer MEDICARE ==
[~2023-12-19] MED LIST changes: +GUAN2TAB PO
== END ==
LOC: M SFHCCLAY 16:28
PROVIDERS: ATTEND Nurse Practitioner Family
DX: Z86.2 Personal history of diseases of the blood and blood-forming organs and certain disorders involving the immune mechanism (principal)

== ENCOUNTER 2023-12-30 06:08 | Day surgery (SDC) | payer MEDICARE ==
[~2023-12-30] VITALS: Ht 165.1 cm; Wt 79.2 kg
[2023-12-30] MEDS ORDERED: LR 1,000 ML IV SCH (07:00)
[2023-12-30] MEDS ORDERED: fentaNYL 100 MCG/2 ML INJECTION As Ordered ONE (07:16)
[2023-12-30] MEDS ORDERED: MIDAZOLAM INJ 2MG/2ML VIAL As Ordered ONE (07:16)
[2023-12-30] MEDS: PHENYLEPHRINE 2.5% OPHTH SOL 2ML OS SCH (07:37)
[2023-12-30] MEDS: FLURBIPROFEN 0.03% OPHTH SOLN 2.5 ML OS SCH (07:37)
[2023-12-30] MEDS: ATROPINE SULFATE 1% OPHTH SOLN 2ML BTL OS SCH (07:37)
[2023-12-30] MEDS: TETRACAINE 0.5% OPHTH SOLN 4ML OS SCH (07:37)
[2023-12-30] MEDS: LIDOCAINE 1% SDV 5ML VIAL As Ordered ONE (08:10)
[2023-12-30] MEDS: CEFUROXIME 1MG/0.1ML INTRACAMERAL INJ As Ordered ONE (08:15)
[2023-12-30 08:34] VITALS: BP 178/84; TEMP 97; O2SAT 99
== END 2023-12-30 08:49 | disposition home or self-care (01) ==
LOC: M SDC 06:08
PROVIDERS: ATTEND Ophthalmology
DX: H25.12 Age-related nuclear cataract, left eye (principal); I25.10 Atherosclerotic heart disease of native coronary artery without angina pectoris; I50.9 Heart failure, unspecified; E11.9 Type 2 diabetes mellitus without complications; I11.0 Hypertensive heart disease with heart failure; Z87.891 Personal history of nicotine dependence; Z88.5 Allergy status to narcotic agent; Z88.2 Allergy status to sulfonamides; Z88.1 Allergy status to other antibiotic agents; Z88.8 Allergy status to other drugs, medicaments and biological substances; Z79.899 Other long term (current) drug therapy
CPT/HCPCS: 66984; J0697; J2250; J3010; V2632

== ENCOUNTER → 2024-01-07 | Outpatient (REF) | payer MEDICARE | LOC: M SFHCCLAY 11:42 | PROVIDERS: ATTEND Physician Assistant | DX: R30.0 Dysuria (principal) ==

== ENCOUNTER 2024-03-02 06:26 | Day surgery (SDC) | payer MEDICARE ==
[~2024-03-02] VITALS: Ht 162.6 cm; Wt 83.5 kg
[~2024-03-02 06:26] MED LIST changes: +ATROPINE SULFATE 1% OPHTH SOLN 2ML BTL OD SCH; +FLURBIPROFEN 0.03% OPHTH SOLN 2.5 ML OD SCH; +GLIP10TA15; -GLIP10TA6; +PHENYLEPHRINE 2.5% OPHTH SOL 2ML OD SCH; +TETRACAINE 0.5% OPHTH SOLN 4ML OD SCH
[2024-03-02] MEDS ORDERED: LR 1,000 ML IV SCH (07:00)
[2024-03-02] MEDS ORDERED: fentaNYL 100 MCG/2 ML INJECTION As Ordered ONE (07:23)
[2024-03-02] MEDS ORDERED: ONDANSETRON 4MG 2ML VIAL As Ordered ONE (08:50)
[2024-03-02] MEDS: LIDOCAINE 1% SDV 5ML VIAL As Ordered ONE (08:51)
[2024-03-02] MEDS ORDERED: LABETALOL 100MG/20ML VIAL As Ordered ONE (08:58)
[2024-03-02] MEDS: CEFUROXIME 1MG/0.1ML INTRACAMERAL INJ As Ordered ONE (08:58)
[2024-03-02 09:13] VITALS: BP 172/72; TEMP 96.9; O2SAT 98
== END 2024-03-02 10:25 | disposition home or self-care (01) ==
LOC: M SDC 06:26
PROVIDERS: ATTEND Ophthalmology
DX: H25.11 Age-related nuclear cataract, right eye (principal); I25.10 Atherosclerotic heart disease of native coronary artery without angina pectoris; I50.9 Heart failure, unspecified; E11.9 Type 2 diabetes mellitus without complications; I11.0 Hypertensive heart disease with heart failure; Z88.2 Allergy status to sulfonamides; Z88.5 Allergy status to narcotic agent; Z88.1 Allergy status to other antibiotic agents; Z88.8 Allergy status to other drugs, medicaments and biological substances; Z79.899 Other long term (current) drug therapy
CPT/HCPCS: 66984; J0697; J1920; J2405; J3010; V2632

== ENCOUNTER → 2024-03-09 | Outpatient (REF) | payer MEDICARE ==
[~2024-03-09] MED LIST changes: -ATROPINE SULFATE 1% OPHTH SOLN 2ML BTL OD SCH; -FLURBIPROFEN 0.03% OPHTH SOLN 2.5 ML OD SCH; -PHENYLEPHRINE 2.5% OPHTH SOL 2ML OD SCH; -TETRACAINE 0.5% OPHTH SOLN 4ML OD SCH
== END ==
LOC: M SFHCCLAY 10:27
PROVIDERS: ATTEND Physician Assistant
DX: R50.9 Fever, unspecified (principal)

== ENCOUNTER → 2024-04-15 | Outpatient (REF) | payer MEDICARE ==
[2024-04-15 12:12] LABS: BASO % 0.6 % (0.0-1.0); EOS # 0.2 10^3/uL (0.0-0.5); HEMATOCRIT 27.6 % (36.0-47.0); HEMOGLOBIN 9.4 g/dl (12.0-15.5); LYMPH % 15.5 % (24.0-44.0); MEAN CORPUSCULAR HEMOGLOBIN 32.9 pg (27.0-33.0); MEAN CORPUSCULAR HGB CONC 34.1 g/dl (32.0-36.5); MEAN CORPUSCULAR VOLUME 96.5 fl (80.0-96.0); MONO # 0.4 10^3/uL (0.0-0.8); MONO % 5.6 % (2.0-8.0); NEUTROPHILS # 4.8 10^3/uL (1.5-8.5); NEUTROPHILS % 74.8 % (36.0-66.0); PLATELET COUNT, AUTOMATED 143 10^3/uL (150-450); RED BLOOD COUNT 2.86 10^6/uL (4.00-5.40); WHITE BLOOD COUNT 6.4 10^3/uL (4.0-10.0)
[2024-04-15 12:39] LABS: FREE T4 0.96 NG/DL (0.89-1.76); THYROID STIMULATING HORMONE 1.098 uIU/ML (0.55-4.78)
[2024-04-15 12:40] LABS: FOLATE > 24.00 NG/ML (>5.4)
[2024-04-15 12:41] LABS: ALBUMIN 3.4 G/DL (3.2-5.2); ALKALINE PHOSPHATASE 187 U/L (35-104); ALT/SGPT 22 U/L (7.0-40); AST/SGOT 15 U/L (<34); BILIRUBIN,TOTAL 0.3 MG/DL (0.3-1.2); BLOOD UREA NITROGEN 68 MG/DL (9-23); CALCIUM LEVEL 9.1 MG/DL (8.3-10.6); CARBON DIOXIDE LEVEL 24 MMOL/L (20-31); CHLORIDE LEVEL 104 MMOL/L (98-107); CHOLESTEROL LEVEL 135 MG/DL (<200); CHOLESTEROL RISK RATIO 3.51 (<5); CREATININE FOR GFR 3.65 MG/DL (0.55-1.30); GLOMERULAR FILTRATION RATE 13.1 (>39); GLUCOSE, FASTING 228 MG/DL (74-106); HDL CHOLESTEROL 38.4 MG/DL (>40); IRON (FE) 76 UG/DL (50-170); LDL CHOLESTEROL 53.2 MG/DL (<100); NON-HDL-C 96.6 MG/DL; PERCENT SATURATION 28.3 % (13.2-45.0); POTASSIUM SERUM 4.5 MMOL/L (3.5-5.1); SODIUM LEVEL 140 MMOL/L (136-145); TOTAL IRON BINDING CAPACITY 269 UG/DL (250-425); TOTAL PROTEIN 7.6 G/DL (5.7-8.2); TRIGLYCERIDES LEVEL 217 MG/DL (<150)
[2024-04-15 12:44] LABS: VITAMIN B12 LEVEL 916 PG/ML (211-911)
[2024-04-15 13:35] LABS: HEMOGLOBIN A1c 5.7 % (4.0-6.0)
== END ==
LOC: M SFHCCLAY 09:15
PROVIDERS: ATTEND Nurse Practitioner Family
DX: E11.22 Type 2 diabetes mellitus with diabetic chronic kidney disease (principal); G89.4 Chronic pain syndrome; N18.6 End stage renal disease; I10 Essential (primary) hypertension; B18.2 Chronic viral hepatitis C; I25.10 Atherosclerotic heart disease of native coronary artery without angina pectoris; Z86.2 Personal history of diseases of the blood and blood-forming organs and certain disorders involving the immune mechanism; E78.2 Mixed hyperlipidemia; K74.60 Unspecified cirrhosis of liver; K21.9 Gastro-esophageal reflux disease without esophagitis; Z12.11 Encounter for screening for malignant neoplasm of colon; E55.9 Vitamin D deficiency, unspecified

== ENCOUNTER → 2024-05-22 | Outpatient (CLI) | payer MEDICARE | LOC: M RAD 13:01 | PROVIDERS: ATTEND Internal Medicine Pulmonary Disease | DX: Z12.2 Encounter for screening for malignant neoplasm of respiratory organs (principal); Z87.891 Personal history of nicotine dependence ==

== ENCOUNTER → 2024-06-17 | Outpatient (REF) | payer MEDICARE ==
[~2024-06-17] MED LIST changes: +CETI-24 PO; +CULTCAP2 PO; +GLIP10TA15 PO; +LOSA100T46 PO; +METO5TA PO; +TORS100T PO
[2024-06-17 18:56] LABS: HEPATITIS B SURFACE ANTIBODY NEGATIVE (POSITIVE)
[2024-06-17 19:07] LABS: HEPATITIS B SURFACE ANTIGEN NEGATIVE (NEGATIVE)
[2024-06-17 19:28] LABS: HEPATITIS B CORE ANTIBODY IGM NEGATIVE (NEGATIVE)
[2024-06-17 19:33] LABS: HEPATITIS C VIRUS ABY INDEX > 11.00 INDEX (<0.8)
[2024-06-19 11:58] LABS: HCV RNA QUANTITATION <15 NOT DETECTED IU/mL (NOT DETECTED); HCV RNA log10 <1.18 NOT DETECTED Log IU/mL (NOT DETECTED)
== END ==
LOC: M LAB REF 17:37
PROVIDERS: ATTEND Internal Medicine Nephrology
DX: N18.5 Chronic kidney disease, stage 5 (principal); Z11.59 Encounter for screening for other viral diseases

== ENCOUNTER → 2024-06-29 | Outpatient (REF) | payer MEDICARE | LOC: M SFHCCLAY 10:01 | PROVIDERS: ATTEND Nurse Practitioner Family | DX: Z01.818 Encounter for other preprocedural examination (principal) ==

== ENCOUNTER 2024-07-02 11:04 | Day surgery (SDC) | payer MEDICARE ==
[~2024-07-02] VITALS: Ht 167.6 cm; Wt 84.0 kg
[~2024-07-02 11:04] MED LIST changes: +UNRESOLVED CLARIFICATION ENTRY XX SCH
[2024-07-02] MEDS ORDERED: LR 1,000 ML IV SCH ×2 (12:15→16:25)
[2024-07-02] MEDS: ACETAMINOPHEN 500 MG TAB PO ONE (12:46)
[2024-07-02] MEDS: NS (Normal Saline) 0.9% 1,000 ML IV SCH (12:47)
[2024-07-02] MEDS ORDERED: propofoL 200 MG/20 ML VIAL As Ordered ONE (12:54)
[2024-07-02] MEDS ORDERED: SUGAMMADEX SODIUM 500 MG/5 ML VIAL (BRIDION) As Ordered ONE (12:54)
[2024-07-02] MEDS ORDERED: ONDANSETRON 4MG 2ML VIAL As Ordered ONE (12:54)
[2024-07-02] MEDS ORDERED: ROCURONIUM BROMIDE 50MG/5ML VIAL As Ordered ONE (12:54)
[2024-07-02] MEDS ORDERED: LIDOCAINE 2% 100MG/5ML SDV (FOR ANES.) As Ordered ONE (12:54)
[2024-07-02] MEDS ORDERED: fentaNYL 100 MCG/2 ML INJECTION As Ordered ONE (12:54)
[2024-07-02] MEDS ORDERED: MIDAZOLAM INJ 2MG/2ML VIAL As Ordered ONE (12:55)
[2024-07-02] MEDS ORDERED: PHENYLephrine 500MCG 5ML (100MCG/ML) SYRINGE As Ordered ONE (13:56)
[2024-07-02] MEDS ORDERED: ePHEDrine SULFATE 25 MG/5 ML(5MG/ML) SYRINGE As Ordered ONE (13:56)
[2024-07-02] MEDS ORDERED: dexmedeTOMIDine (4MCG/ML)200MCG/50ML BTL (PRECEDEX) As Ordered ONE (13:56)
[2024-07-02] MEDS: SCOPOLAMINE 1MG TRANSDERMAL PATCH As Ordered ONE (14:09)
[2024-07-02] MEDS: ceFAZolin SOD 2 GM in IV 1 EA IV ONE (14:15)
[2024-07-02] MEDS: HEPARIN SOD (PORCINE) 5000UNITS/ML 1ML VIAL/SYRINGE As Ordered ONE (14:40)
[2024-07-02] MEDS ORDERED: SUCCINYLCHOLINE 100MG/5ML SYRINGE As Ordered ONE (14:52)
[2024-07-02] MEDS ORDERED: ONDANSETRON 4MG 2ML VIAL IV PRN (16:25)
[2024-07-02] MEDS ORDERED: oxyCODONE 5MG TAB PO PRN (16:25)
[2024-07-02] MEDS ORDERED: HYDROMORPHONE HCL 0.5 MG/ 0.5 ML SYRINGE IV PRN (16:25)
[2024-07-02] MEDS ORDERED: fentaNYL 100 MCG/2 ML INJECTION IV PRN (16:25)
[2024-07-02] MEDS: METOCLOPRAMIDE INJ 10MG/2ML VIAL IV PRN (16:48)
[2024-07-02] MEDS: PROMETHAZINE 25MG/ML 1ML VIAL IV PRN (17:55)
[2024-07-02 19:00] VITALS: BP 153/70; TEMP 97.2; O2SAT 100
== END 2024-07-02 19:05 | disposition home or self-care (01) ==
LOC: M SDC 11:04
PROVIDERS: ATTEND Surgery
DX: N18.6 End stage renal disease (principal); K66.0 Peritoneal adhesions (postprocedural) (postinfection); I25.10 Atherosclerotic heart disease of native coronary artery without angina pectoris; I50.9 Heart failure, unspecified; I13.2 Hypertensive heart and chronic kidney disease with heart failure and with stage 5 chronic kidney disease, or end stage renal disease; E11.22 Type 2 diabetes mellitus with diabetic chronic kidney disease; Z88.1 Allergy status to other antibiotic agents; Z88.2 Allergy status to sulfonamides; Z88.8 Allergy status to other drugs, medicaments and biological substances; Z79.899 Other long term (current) drug therapy
CPT/HCPCS: 49324; J0330; J0665; J0690; J1100; J2250; J2371; J2405; J2550; J2765; J3010

== ENCOUNTER → 2024-08-05 | Outpatient (CLI) | payer MEDICARE ==
[~2024-08-05] MED LIST changes: +GLIP-318 PO; +GLIP-320 PO; -GLIP10TA18 PO; -GLIP5TAB20 PO; -UNRESOLVED CLARIFICATION ENTRY XX SCH
== END ==
LOC: M RAD 10:18
PROVIDERS: ATTEND Internal Medicine Nephrology
DX: T85.691A Other mechanical complication of intraperitoneal dialysis catheter, initial encounter (principal); Y84.6 Urinary catheterization as the cause of abnormal reaction of the patient, or of later complication, without mention of misadventure at the time of the procedure

== ENCOUNTER 2024-11-25 07:01 | Day surgery (SDC) | payer MEDICARE ==
[~2024-11-25] VITALS: Ht 167.6 cm; Wt 85.1 kg
[~2024-11-25 07:01] MED LIST changes: +CALC1CAP PO; +ONDA-83 PO; +THERTAB52 PO
[2024-11-25 09:31] VITALS: BP 163/72; O2SAT 100
== END 2024-11-25 09:39 | disposition home or self-care (01) ==
LOC: M OPP 07:01
PROVIDERS: ATTEND Surgery
DX: D12.6 Benign neoplasm of colon, unspecified (principal); D50.9 Iron deficiency anemia, unspecified; K29.50 Unspecified chronic gastritis without bleeding; G47.30 Sleep apnea, unspecified; Z79.4 Long term (current) use of insulin; Z88.1 Allergy status to other antibiotic agents; Z88.2 Allergy status to sulfonamides; Z88.8 Allergy status to other drugs, medicaments and biological substances; Z79.82 Long term (current) use of aspirin; Z79.899 Other long term (current) drug therapy

== ENCOUNTER → 2025-01-06 | Outpatient (CLI) | payer MEDICARE | LOC: M PLAIMG 13:38 | PROVIDERS: ATTEND Internal Medicine Nephrology | DX: T85.691A Other mechanical complication of intraperitoneal dialysis catheter, initial encounter (principal) ==

== ENCOUNTER 2025-01-29 10:26 | Day surgery (SDC) | payer MEDICARE ==
[~2025-01-29] VITALS: Ht 167.6 cm; Wt 87.5 kg
[2025-01-29] MEDS ORDERED: LR 1,000 ML IV SCH ×2 (11:05→16:05)
[2025-01-29] MEDS: SCOPOLAMINE 1MG TRANSDERMAL PATCH TOP ONE (12:20)
[2025-01-29] MEDS ORDERED: ROCURONIUM BROMIDE 50MG/5ML VIAL As Ordered ONE (13:55)
[2025-01-29] MEDS ORDERED: MIDAZOLAM INJ 2 MG/2 ML VIAL As Ordered ONE (13:55)
[2025-01-29] MEDS ORDERED: LIDOCAINE 2% 100 MG/5 ML SDV (FOR ANES.) As Ordered ONE (13:55)
[2025-01-29] MEDS ORDERED: dexAMETHasone 4 MG/ML 1 ML VIAL As Ordered ONE (14:00)
[2025-01-29] MEDS ORDERED: SUGAMMADEX SODIUM 200 MG/2 ML VIAL As Ordered ONE (14:02)
[2025-01-29] MEDS ORDERED: KETOROLAC 30 MG/ML 1 ML VIAL As Ordered ONE (14:02)
[2025-01-29] MEDS ORDERED: ACETAMINOPHEN 1000MG/100ML IV BAG As Ordered ONE (14:02)
[2025-01-29] MEDS: ceFAZolin SOD 2 GM IV ONCE IV ONE (14:22)
[2025-01-29] MEDS: DEXTROSE 50% 50 ML SYRINGE As Ordered ONE (14:50)
[2025-01-29] MEDS: LIDOCAINE 1% SDV 30 ML VIAL As Ordered ONE (15:50)
[2025-01-29] MEDS: HEPARIN LOCK FLUSH 100 UNITS/ML 3 ML SYRINGE As Ordered ONE (15:50)
[2025-01-29] MEDS ORDERED: HYDROMORPHONE HCL 0.5 MG/0.5 ML SYRINGE IV PRN (16:05)
[2025-01-29] MEDS: ONDANSETRON 4MG 2ML VIAL IV PRN (16:15)
[2025-01-29 17:55] VITALS: BP 130/57; TEMP 96.9; O2SAT 99
== END 2025-01-29 18:13 | disposition home or self-care (01) ==
LOC: M SDC 10:26
PROVIDERS: ATTEND Surgery
DX: T85.691A Other mechanical complication of intraperitoneal dialysis catheter, initial encounter (principal); Y74.2 Prosthetic and other implants, materials and accessory general hospital and personal-use devices associated with adverse incidents; K66.0 Peritoneal adhesions (postprocedural) (postinfection); Z99.2 Dependence on renal dialysis; E11.9 Type 2 diabetes mellitus without complications; I25.10 Atherosclerotic heart disease of native coronary artery without angina pectoris; I25.2 Old myocardial infarction; I11.0 Hypertensive heart disease with heart failure; I50.9 Heart failure, unspecified; R06.83 Snoring; Z88.1 Allergy status to other antibiotic agents; Z88.8 Allergy status to other drugs, medicaments and biological substances; Z88.2 Allergy status to sulfonamides; Z79.899 Other long term (current) drug therapy
CPT/HCPCS: 36415; 49325; 84132; J0131; J0665; J0688; J1100; J1642; J2250; J2405; J2765; J3010

== ENCOUNTER → 2025-02-02 | Outpatient (CLI) | payer MEDICARE | LOC: M CLY 11:21 | PROVIDERS: ATTEND Nurse Practitioner Family | DX: S49.91XA Unspecified injury of right shoulder and upper arm, initial encounter (principal); M19.011 Primary osteoarthritis, right shoulder; X58.XXXA Exposure to other specified factors, initial encounter; Y92.9 Unspecified place or not applicable; Y93.9 Activity, unspecified; Y99.9 Unspecified external cause status ==

== ENCOUNTER → 2025-02-02 | Outpatient (REF) | payer MEDICARE ==
[2025-02-02 17:08] LABS: BASO # 0.0 10^3/uL (0.0-0.2); BASO % 0.5 % (0.0-1.0); EOS # 0.5 10^3/uL (0.0-0.5); EOS % 5.5 % (0.0-3.0); LYMPH # 1.1 10^3/uL (1.5-5.0); LYMPH % 12.9 % (24.0-44.0); MONO # 0.5 10^3/uL (0.0-0.8); MONO % 6.4 % (2.0-8.0); NEUTROPHILS # 6.0 10^3/uL (1.5-8.5); NEUTROPHILS % 74.0 % (36.0-66.0)
[2025-02-02 17:15] LABS: INR 0.97
[2025-02-02 17:30] LABS: IRON (FE) 55 UG/DL (50-170)
[2025-02-02 17:31] LABS: PERCENT SATURATION 22.4 % (13.2-45.0)
[2025-02-02 17:43] LABS: ESTIMATED AVERAGE GLUCOSE 134.0 MG/DL (60-110)
[2025-02-02 18:25] LABS: ALT/SGPT < 9 U/L (7.0-40); AST/SGOT 14 U/L (<34); CALCIUM LEVEL 8.5 MG/DL (8.3-10.6); CARBON DIOXIDE LEVEL 28 MMOL/L (20-31); CHLORIDE LEVEL 98 MMOL/L (98-107); CHOLESTEROL LEVEL 153 MG/DL (<200); CHOLESTEROL RISK RATIO 4.81 (<5); CREATININE FOR GFR 10.19 MG/DL (0.55-1.30); FREE T4 1.09 NG/DL (0.89-1.76); GLOMERULAR FILTRATION RATE 3.7 (>39); LDL CHOLESTEROL 50.2 MG/DL (<100); NON-HDL-C 121.2 MG/DL; POTASSIUM SERUM 5.1 MMOL/L (3.5-5.1); SODIUM LEVEL 137 MMOL/L (136-145); TRIGLYCERIDES LEVEL 355 MG/DL (<150); VITAMIN B12 LEVEL 1222 PG/ML (211-911)
[2025-02-09 23:57] LABS: ALPHA 2-MACROGLOBULINS,QN 325 mg/dL (106-279); ALT (SGPT) P5P < 3 U/L (6-29); APOLIPOPROTEIN A-1 126 mg/dL (101-198); FIBROSIS SCORE 0.39; FIBROSIS STAGE MINIMAL FIBROSIS (F0); GGT 27 U/L (3-65); HAPTOGLOBIN 214 mg/dL (43-212); NECROINFLAM ACT GRADE NO ACTIVITY (A0); NECROINFLAM ACT SCORE 0
== END ==
LOC: M SFHCCLAY 10:51
PROVIDERS: ATTEND Nurse Practitioner Family
DX: E11.22 Type 2 diabetes mellitus with diabetic chronic kidney disease (principal); G89.4 Chronic pain syndrome; N18.6 End stage renal disease; I10 Essential (primary) hypertension; B18.2 Chronic viral hepatitis C; I25.10 Atherosclerotic heart disease of native coronary artery without angina pectoris; Z86.2 Personal history of diseases of the blood and blood-forming organs and certain disorders involving the immune mechanism; E78.2 Mixed hyperlipidemia; K74.60 Unspecified cirrhosis of liver; K21.9 Gastro-esophageal reflux disease without esophagitis

== ENCOUNTER → 2025-03-01 | Outpatient (CLI) | payer MEDICARE | LOC: M PLAIMG 14:52 | PROVIDERS: ATTEND Internal Medicine Nephrology | DX: T85.691A Other mechanical complication of intraperitoneal dialysis catheter, initial encounter (principal); N18.6 End stage renal disease; K59.00 Constipation, unspecified; Y83.1 Surgical operation with implant of artificial internal device as the cause of abnormal reaction of the patient, or of later complication, without mention of misadventure at the time of the procedure ==

== ENCOUNTER → 2025-03-31 | Outpatient (CLI) | payer MEDICARE | LOC: M CLY 09:38 | PROVIDERS: ATTEND Physician Assistant | DX: T85.611A Breakdown (mechanical) of intraperitoneal dialysis catheter, initial encounter (principal); Y83.1 Surgical operation with implant of artificial internal device as the cause of abnormal reaction of the patient, or of later complication, without mention of misadventure at the time of the procedure ==

== ENCOUNTER → 2025-05-03 | Outpatient (CLI) | payer MEDICARE | LOC: M PLAIMG 12:30 | PROVIDERS: ATTEND Surgery | DX: R10.31 Right lower quadrant pain (principal) ==